=== PATIENT | female | born 1960 | race Caucasian/White ===

== ENCOUNTER → 2016-10-26 | Outpatient (CLI) | payer OTHER ==
[~2016-10-26] MED LIST: ASPI325T45 PO; ASPI81TA28 PO; CYAN10005 PO; CYCL10TA6 PO; DOXY100C2 PO; FERR1TAB61 PO; LPT/40 PO; MULT-506 PO; NITR1CAP16 PO; OMEGCAP2 PO; OMEP40CA41 PO; OPTIRAY 320 IV PRN; OXYC-57 PO; PRED10TA PO; PRT/20 PO; RANI300T PO; SENN-65 PO; SERT-234 PO; [UNRECOGNIZED DRUG - CODE] PO
[2016-10-26 09:37] LABS: BLOOD UREA NITROGEN 11 mg/dl (7-18); CALCIUM 9.1 mg/dl (8.5-10.1); CARBON DIOXIDE 27 mmol/L (21-32); CHLORIDE 105 mmol/L (98-107); GLUCOSE 101 mg/dl (70-99); SODIUM 141 mmol/L (136-145)
--- NOTE | 2016-10-26 09:59 | DIAGNOSTIC IMAGING REPORT ---
CT SCAN OF THE CHEST WITH IV CONTRAST CLINICAL HISTORY: Cough. Hemoptysis. COMPARISON STUDY: Chest radiograph dated 08/05/2015. Abdominal CT dated 01/18/2015. TECHNIQUE: Following the IV administration of 94 cc of Optiray 320, CT scan of the thorax was performed from the thoracic inlet to the upper abdomen. Images are reviewed in the axial, sagittal, and coronal planes. IV contrast was administered without complication. CT DOSE: 248.90 mGy.cm FINDINGS: Thyroid: Imaged portions of the thyroid gland are normal in size and attenuation. Thoracic aorta: The thoracic aorta is normal in caliber and demonstrates standard 3-vessel arch anatomy. No dissection is seen. Pulmonary vasculature: The pulmonary trunk is normal in caliber. There are no filling defects identified in the central pulmonary vessels to indicate pulmonary embolus. Note that this examination was not protocoled for evaluation of the pulmonary arteries. Heart: The heart is normal in size and there is trace pericardial fluid. Lungs and pleural spaces: There is biapical scarring. No airspace consolidation or pleural effusion is identified. Linear atelectasis versus scarring is noted in the lingula. The trachea and central airways are clear. Mediastinum: There is no mediastinal lymphadenopathy. Barbara: Clear. Axillae: There is no axillary lymphadenopathy. Upper abdomen: Cholecystectomy clips are identified in the right upper quadrant. There is evidence of hepatic steatosis. A small hiatal hernia is identified. Foci of cortical scarring are noted in the upper pole of the right kidney. There is a punctate nonobstructing renal calculus in the right upper pole. Skeletal structures: The skeletal structures are osteopenic. No lytic or blastic bony lesions are seen. IMPRESSION: 1. There is no airspace consolidation or pleural effusion. 2. There is no mediastinal or hilar lymphadenopathy. 3. Cortical scarring and a nonobstructing stone identified in the upper pole of the right kidney. This is similar appearance to the 01/18/[address] 4. Hepatic steatosis. 5. Additional findings as above. Electronically signed by: Miguel Angel Davis M.D. 10/26/2016 9:58 AM Dictated Date/Time: 10/26/2016 9:53 AM
== END | disposition home or self-care (01) ==
LOC: C.CTS 08:42
PROVIDERS: ATTEND Internal Medicine Pulmonary Disease
DX: R04.2 Hemoptysis (principal); K76.0 Fatty (change of) liver, not elsewhere classified; N20.0 Calculus of kidney

== ENCOUNTER → 2016-11-16 | Outpatient (CLI) | payer OTHER ==
[~2016-11-16] MED LIST changes: -OPTIRAY 320 IV PRN
[2016-11-16 20:21] LABS: INFLUENZA B PCR Neg for Influ B (NEG)
[2016-11-16 20:22] LABS: INFLUENZA A PCR POS for Influ A (NEG)
== END | disposition home or self-care (01) ==
LOC: C.LABMFLN 12:18
PROVIDERS: ATTEND Family Medicine
DX: J06.9 Acute upper respiratory infection, unspecified (principal)

== ENCOUNTER 2017-01-22 15:46 | Emergency (ER) | payer OTHER ==
[~2017-01-22] VITALS: Ht 167.6 cm; Wt 83.9 kg
[~2017-01-22 15:46] MED LIST changes: -ASPI81TA28 PO; -CYAN10005 PO; -DOXY100C2 PO; -MULT-506 PO; -NITR1CAP16 PO; -OMEP40CA41 PO; -OXYC-57 PO; -PRED10TA PO; -[UNRECOGNIZED DRUG - CODE] PO
[2017-01-22 15:57] VITALS: TEMP 36.8; Ht 167.6 cm; Wt 83.9 kg
[2017-01-22] MEDS ORDERED: KETOROLAC TROMETHAMINE 30 MG/ML VIAL IV STA (16:36)
[2017-01-22 16:45] LABS: BASO % 0.3 %; BASO ABS # 0.02 K/uL (0-0.2); COMPLETE YES; HEMATOCRIT 37.5 % (37-47); IG% 0.3 %; LYMPH ABS # 1.87 K/uL (1.2-3.4); MEAN CELL VOLUME 87.8 fL (80-100); MEAN CORPUSCULAR HEMOGLOBIN 29.7 pg (25-34); MEAN CORPUSCULAR HGB CONC 33.9 g/dl (32-36); MEAN PLATELET VOLUME 9.5 fL (7.4-10.4); MONO % 7.1 %; NEUT % 61.3 %; PLATELET COUNT 157 K/uL (130-400); RED BLOOD COUNT 4.27 M/uL (4.2-5.4); WHITE BLOOD COUNT 6.44 K/uL (4.8-10.8)
[2017-01-22 16:55] LABS: URINE APPEARANCE CLEAR (CLEAR); URINE BILIRUBIN NEG (NEG); URINE COLOR YELLOW; URINE EPITHELIAL CELL AUTO >30 /lpf (0-5); URINE NITRITE NEG (NEG); URINE PH 5.5 (4.5-7.5); UROBILINOGEN NEG (NEG); ZZUR CULT IF INDIC CLEAN CATCH YES
[2017-01-22 16:56] LABS: MANUAL MICROSCOPIC REQUIRED? NO; REVIEW REQ? NO
[2017-01-22 17:04] LABS: ALT/SGPT 41 U/L (12-78); AST/SGOT 28 U/L (15-37); BLOOD UREA NITROGEN 16 mg/dl (7-18); BUN/CREATININE RATIO 13.6 (10-20); CALCIUM 9.2 mg/dl (8.5-10.1); CARBON DIOXIDE 28 mmol/L (21-32); CHLORIDE 105 mmol/L (98-107); GLUCOSE 93 mg/dl (70-99); POTASSIUM 3.9 mmol/L (3.5-5.1); SODIUM 141 mmol/L (136-145)
[2017-01-22 17:08] LABS: ALKALINE PHOSPHATASE 102 U/L (45-117)
--- NOTE | 2017-01-22 17:10 | EMERGENCY ROOM VISIT NOTE ---
History Report prepared by Davide: Arun Melvin Under the Supervision of: Dr. Lacho Elliott M.D. 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 The discomfort significantly worsened over the weekend. 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 The patient had the tumor removed and has not had discomfort in the area since. She notes that the pain she is currently having is right around the area of where the operation was and her symptoms feel similar. She also complains of a feeling more fatigued. The discomfort is worse with deep breaths and lifting her left arm. She also complains of cough, some shortness of breath that comes and goes, and chills. She denies fever or recent falls or trauma at this time. Source of History: patient Onset: the past 5 days Position: other (left lung ) Timing: other (persistent) Modifying Factors (Worsening): breathing (deep breaths ), other (lifting left arm) Associated Symptoms: + SOB (some coming and going), + chills, + cough, + fatigue, No fevers Note: Denies: recent falls or trauma Review of Systems All systems have been listed, reviewed, and are negative other than those previously mentioned. Please see Additional Medical History Sheet. Past Medical & Surgical Medical Problems: (1) Fibromyalgia (2) HLD (hyperlipidemia) (3) Mini stroke (4) Neuropathy Family History Heart disease Social History Smoking Status: Former Smoker Alcohol Use: none Housing Status: lives with family Occupation Status: employed Current/Historical Medications Scheduled Aspirin (Aspirin), 325 MG PO DAILY Atorvastatin (Lipitor), 40 MG PO DAILY Cyanocobalamin (Vitamin B-12), 1,000 MCG PO DAILY Cyclobenzaprine Hcl (Flexeril), 10 MG PO HS Ferrous Sulfate (Iron), 65 MG PO DAILY Nitrofurantoin Monohyd Macro (Macrobid), 100 MG PO BID [place]-3 Fatty Acids (Fish Oil), 1,290 MG PO DAILY Pantoprazole (Protonix), 20 MG PO DAILY Ranitidine Hcl (Zantac), 300 MG PO HS Sertraline (Zoloft), 200 MG PO HS Scheduled PRN Oxycodone/Acetaminophen 5MG/325MG (Percocet 5MG/325MG), 1-2 TABLETS PO Q4H PRN for Pain Senna/Docusate Sod (Senokot S), 1 TAB PO DAILY PRN for Constipation Allergies Coded Allergies: Ciprofloxacin (Unverified Allergy, Unknown, ITCHY,, 01/22/17) Gabapentin (Verified Allergy, Unknown, Disorientation/Itching, 01/22/17) Source, reported by PT. Tramadol (Verified Allergy, Unknown, ITCHY, 01/22/17) Penicillins (Verified Adverse Reaction, Unknown, DISORIENTED, 01/22/17) Sulfa Drugs (Verified Adverse Reaction, Unknown, DISORIENTED, 01/22/17) Physical Exam Vital Signs Date Time Temp Pulse Resp B/P Pulse Ox O2 Delivery O2 Flow Rate FiO2 01/22/17 18:08 88 18 98/68 97 01/22/17 17:46 84 16 95 01/22/17 17:16 84 17 94 01/22/17 16:46 84 12 95 01/22/17 16:28 Room Air 01/22/17 16:28 97 16 117/93 97 Room Air 01/22/17 16:20 92 01/22/17 15:57 36.8 84 18 139/85 98 Room Air Physical Exam GENERAL: Patient awake, alert, oriented x 3. Patient follows commands. Patient does not appear toxic. Patient is adequately hydrated and well- nourished. SKIN: No erythema, pallor, cyanosis or rash HEENT: Normal head, pupils equal, reactive to light and accommodation. Ears normal. Oral cavity and posterior pharynx appear normal. Neck: Without adenopathy, no neck vein distention. LUNGS: Clear to auscultation. No wheezes, no rales, no rhonchi. HEART: No murmurs. No gallops. No rubs ABDOMEN: No masses, no rebound, no hepatomegaly or splenomegaly. Two small scars on upper abdomen from a previous laparoscopic surgery. BACK: Tender on left sign from T6 to T8. EXTREMITIES: No signs of trauma. No pedal or pretibial edema. No calf or thigh tenderness. NEUROLOGIC: Cranial nerves II-XII within normal limits. No gross motor sensory function deficits. Medical Decision & Procedures ER Provider Diagnostic Interpretation: X ray results are stated below per my interpretation and the radiologist's interpretation. TWO VIEW CHEST CLINICAL HISTORY: Left-sided chest pain. FINDINGS: PA and lateral chest radiographs are compared to study dated 08/05/2015 and correlated with chest CT dated 10/26/16. The cardiomediastinal silhouette is unremarkable. There is atherosclerotic calcification of the thoracic aorta. The pulmonary vasculature is noncongested. Emphysema and chronic interstitial thickening are unchanged. No airspace consolidation or pleural effusion is identified. There is biapical scarring. There is no pneumothorax. The skeletal structures are osteopenic. The bony thorax appears intact. Cholecystectomy clips are identified in the right upper quadrant. IMPRESSION: No acute cardiopulmonary abnormality. Electronically signed by: Miguel Angel Davis M.D. 01/22/2017 5:20 PM Dictated Date/Time: 01/22/2017 5:18 PM Laboratory Results 01/22/17 16:35 Red Blood Count 4.27, Mean Corpuscular Volume 87.8, Mean Corpuscular Hemoglobin 29.7, Mean Corpuscular Hemoglobin Concent 33.9, Mean Platelet Volume 9.5, Neutrophils (%) (Auto) 61.3, Lymphocytes (%) (Auto) 29.0, Monocytes (%) (Auto) 7.1, Eosinophils (%) (Auto) 2.0, Basophils (%) (Auto) 0.3, Neutrophils # (Auto) 3.94, Lymphocytes # (Auto) 1.87, Monocytes # (Auto) 0.46, Eosinophils # (Auto) 0.13, Basophils # (Auto) 0.02 01/22/17 16:35 Test 01/22/17 00:00 01/22/17 16:35 Urine Color YELLOW Urine Appearance CLEAR (CLEAR) Urine pH 5.5 (4.5-7.5) Urine Specific [place] 1.010 (1.000-1.030) Urine Protein NEG (NEG) Urine Glucose (UA) NEG (NEG) Urine Ketones NEG (NEG) Urine Occult Blood NEG (NEG) Urine Nitrite NEG (NEG) Urine Bilirubin NEG (NEG) Urine Urobilinogen NEG (NEG) Urine Leukocyte Esterase MODERATE (NEG) Urine WBC (Auto) 10-30 /hpf (0-5) Urine RBC (Auto) 0-4 /hpf (0-4) Urine Hyaline Casts (Auto) 1-5 /lpf (0-5) Urine Epithelial Cells (Auto) >30 /lpf (0-5) Urine Bacteria (Auto) 3+ (NEG) White Blood Count 6.44 K/uL (4.8-10.8) Red Blood Count 4.27 M/uL (4.2-5.4) Hemoglobin 12.7 g/dL (12.0-16.0) Hematocrit 37.5 % (37-47) Mean Corpuscular Volume 87.8 fL (80-100) Mean Corpuscular Hemoglobin 29.7 pg (25-34) Mean Corpuscular Hemoglobin Concent 33.9 g/dl (32-36) Platelet Count 157 K/uL (130-400) Mean Platelet Volume 9.5 fL (7.4-10.4) Neutrophils (%) (Auto) 61.3 % Lymphocytes (%) (Auto) 29.0 % Monocytes (%) (Auto) 7.1 % Eosinophils (%) (Auto) 2.0 % Basophils (%) (Auto) 0.3 % Neutrophils # (Auto) 3.94 K/uL (1.4-6.5) Lymphocytes # (Auto) 1.87 K/uL (1.2-3.4) Monocytes # (Auto) 0.46 K/uL (0.11-0.59) Eosinophils # (Auto) 0.13 K/uL (0-0.5) Basophils # (Auto) 0.02 K/uL (0-0.2) RDW Standard Deviation 43.3 fL (36.4-46.3) RDW Coefficient of Variation 13.4 % (11.5-14.5) Immature Granulocyte % (Auto) 0.3 % Immature Granulocyte # (Auto) 0.02 K/uL (0.00-0.02) Anion Gap 8.0 mmol/L (3-11) Est Creatinine Clear Calc Drug Dose 57.1 ml/min Estimated GFR () 58.5 Estimated GFR (Non- 50.5 BUN/Creatinine Ratio 13.6 (10-20) Calcium Level 9.2 mg/dl (8.5-10.1) Total Bilirubin 0.4 mg/dl (0.2-1) Aspartate Amino Transf (AST/SGOT) 28 U/L (15-37) Alanine Aminotransferase (ALT/SGPT) 41 U/L (12-78) Alkaline Phosphatase 102 U/L (45-117) Troponin I < 0.015 ng/ml (0-0.045) Total Protein 8.1 gm/dl (6.4-8.2) Albumin 4.0 gm/dl (3.4-5.0) Globulin 4.1 gm/dl (2.5-4.0) Albumin/Globulin Ratio 1.0 (0.9-2) Laboratory results as stated above per my review. Medications Administered Medications (Trade) Dose Ordered Sig/Antonio Route Start Time Stop Time Status Last Admin Dose Admin Ketorolac Tromethamine (Toradol Inj) 30 mg NOW STAT IV 01/22/17 16:36 01/22/17 16:39 DC 01/22/17 16:50 30 MG ECG Indication: back/shoulder pain Rate (beats per minute): 90 Rhythm: normal sinus Findings: no acute ischemic change, no ectopy ED Course 1629: Past medical records reviewed. The patient was evaluated in room B7. A complete history and physical examination was performed. 1636: Ordered Toradol Inj 30 mg IV. 1722: At this time, I reevaluated the patient and she was resting. She updated me stating that she had a history of recurrent kidney infections. 1742: Upon reevaluation, the patient appeared to have improvement of her symptoms. I discussed today's findings with her. She verbalized agreement of the treatment plan. The patient was discharged home. Medical Decision Differential diagnoses include musculoskeletal pain, pneumonia, thoracic spine fracture or arthritis, or neoplastic disease. Multiple labs, EKG, imaging and urinalysis were evaluated.please see above. Chest x-ray does not reveal any acute findings. The patient does not have a pneumothorax or mass. Blood work is unremarkable. Urinalysis is consistent with a UTI. The patient has had past kidney infections. She will be placed back on Macrobid which has worked for her in the past. The patient was also given pain medication. She is to follow-up with her metabolic specialist or family physician within the next 2 weeks. [place] Drug Monitoring Program Search Results: patient reviewed within database, no issues identified Impression Primary Impression: Musculoskeletal back pain Additional Impression: Urinary tract infection Scribe Attestation The scribe's documentation has been prepared under my direction and personally reviewed by me in its entirety. I confirm that the note above accurately reflects all work, treatment, procedures, and medical decision making performed by me. Departure Information Dispostion Home / Self-Care Prescriptions Nitrofurantoin Monohyd Macro (MACROBID) 100 Mg Cap 100 MG PO BID for 10 Days, #20 CAP Prov: Lacho Elliott M.D. 01/22/17 Oxycodone/Acetaminophen 5MG/325MG (PERCOCET 5MG/325MG) Tab 1-2 TABLETS PO Q4H Y for Pain, #20 TAB Prov: Lacho Elliott M.D. 01/22/17 Referrals Isabelle Arredondo M.D. (PCP) Forms IMPORTANT VISIT INFORMATION Patient Instructions My [facility] Additional Instructions Apply heat intermittently to your back and left chest over the next 48 hours. 1 Macrobid twice a day for 10 days. 1-2 Percocet every 4 hours as needed for moderate to severe pain. Follow-up with your family physician or metabolic specialist within the next 2 weeks. Return here sooner if your pain is getting worse. Problem Qualifiers
--- NOTE | 2017-01-22 17:21 | DIAGNOSTIC IMAGING REPORT ---
TWO VIEW CHEST CLINICAL HISTORY: Left-sided chest pain. FINDINGS: PA and lateral chest radiographs are compared to study dated 08/05/2015 and correlated with chest CT dated 10/26/16. The cardiomediastinal silhouette is unremarkable. There is atherosclerotic calcification of the thoracic aorta. The pulmonary vasculature is noncongested. Emphysema and chronic interstitial thickening are unchanged. No airspace consolidation or pleural effusion is identified. There is biapical scarring. There is no pneumothorax. The skeletal structures are osteopenic. The bony thorax appears intact. Cholecystectomy clips are identified in the right upper quadrant. IMPRESSION: No acute cardiopulmonary abnormality. Electronically signed by: Miguel Angel Davis M.D. 01/22/2017 5:20 PM Dictated Date/Time: 01/22/2017 5:18 PM
[2017-01-22] MEDS ORDERED: CYAN10005 PO (17:49)
[2017-01-22] MEDS ORDERED: NITR1CAP16 PO (18:01)
[2017-01-22] MEDS ORDERED: OXYC-57 PO (18:01)
[2017-01-22 18:08] VITALS: BP 98/68; PULSE 88; O2SAT 97
== END 2017-01-22 18:19 | disposition home or self-care (01) ==
LOC: C.EDB 15:48
DX: M54.9 Dorsalgia, unspecified (principal); N39.0 Urinary tract infection, site not specified; M79.7 Fibromyalgia; E78.5 Hyperlipidemia, unspecified; Z86.73 Personal history of transient ischemic attack (TIA), and cerebral infarction without residual deficits; G62.9 Polyneuropathy, unspecified; Z87.891 Personal history of nicotine dependence; Z79.82 Long term (current) use of aspirin; Z79.899 Other long term (current) drug therapy

== ENCOUNTER 2017-03-19 12:46 | Emergency (ER) | payer OTHER ==
[~2017-03-19] VITALS: Ht 167.6 cm; Wt 83.8 kg
[~2017-03-19 12:46] MED LIST changes: +CYAN10005 PO; +OXYC-57 PO
[2017-03-19 12:51] VITALS: TEMP 37; Ht 167.6 cm; Wt 83.8 kg
[2017-03-19] MEDS ORDERED: SODIUM CHLORIDE 0.9% 1000ML 1,000 ML IV STA (13:05)
[2017-03-19] MEDS ORDERED: MoRPHine SULFATE 4 MG/ML 1 ML CARP\\VIAL IV STA (13:05)
[2017-03-19] MEDS ORDERED: ONDANSETRON INJ 2 MG/ML 2 ML VIAL IV STA (13:06)
[2017-03-19 13:32] LABS: BASO % 0.3 %; BASO ABS # 0.02 K/uL (0-0.2); COMPLETE YES; EOS % 2.1 %; HEMATOCRIT 36.7 % (37-47); IG% 0.3 %; LYMPH % 27.3 %; MEAN CELL VOLUME 86.8 fL (80-100); MEAN CORPUSCULAR HEMOGLOBIN 29.3 pg (25-34); MEAN CORPUSCULAR HGB CONC 33.8 g/dl (32-36); MEAN PLATELET VOLUME 9.7 fL (7.4-10.4); MONO % 8.2 %; NEUT % 61.8 %; PLATELET COUNT 153 K/uL (130-400); RED BLOOD COUNT 4.23 M/uL (4.2-5.4)
[2017-03-19 13:51] LABS: BUN/CREATININE RATIO 8.9 (10-20); CREATININE 1.3 mg/dl (0.60-1.20); POTASSIUM 3.8 mmol/L (3.5-5.1)
--- NOTE | 2017-03-19 14:29 | DIAGNOSTIC IMAGING REPORT ---
ABDOMEN AND PELVIS CT WITHOUT CONTRAST CT DOSE: 446.06 mGy.cm HISTORY: Pain. Nausea. periumbilical abd pain, bloating, nausea TECHNIQUE: Multiaxial CT images of the abdomen and pelvis were performed without contrast. COMPARISON STUDY: 01/18/2015 FINDINGS: Lung bases are clear. Liver spleen and pancreas appear unremarkable. Prior cholecystectomy. Several punctate nonobstructing calcifications of the right kidney. Mild fullness right renal collecting system unchanged from the prior exam and considered chronic. The adrenal glands are unremarkable. Bowel pattern is nonobstructive. Several small reactive mesenteric nodes unchanged in the prior study. Stable postoperative changes to low lumbar spine. Bladder is midline. There are no contained calcifications. There is no significant pelvic or inguinal adenopathy. IMPRESSION: No acute process of the abdomen or pelvis. Chronic change as noted. Electronically signed by: Rony Casarez M.D. 03/19/2017 2:27 PM Dictated Date/Time: 03/19/2017 2:22 PM
[2017-03-19] MEDS ORDERED: ASPI81TA28 PO (14:50)
[2017-03-19] MEDS ORDERED: MULT-506 PO (14:56)
[2017-03-19] MEDS ORDERED: DOXY100C2 PO (14:57)
[2017-03-19] MEDS ORDERED: PRED10TA PO (15:08)
[2017-03-19] MEDS ORDERED: [UNRECOGNIZED DRUG - CODE] PO (15:09)
[2017-03-19 15:58] LABS: URINE APPEARANCE CLEAR (CLEAR); URINE BILIRUBIN NEG (NEG); URINE COLOR YELLOW; URINE EPITHELIAL CELL AUTO >30 /lpf (0-5); URINE NITRITE NEG (NEG); URINE PH 5.5 (4.5-7.5); URINE SPECIFIC GRAVITY 1.012 (1.000-1.030); UROBILINOGEN NEG (NEG); ZZUR CULT IF INDIC CLEAN CATCH NO
[2017-03-19 15:59] LABS: MANUAL MICROSCOPIC REQUIRED? NO; REVIEW REQ? NO
[2017-03-19] MEDS ORDERED: OMEP40CA41 PO (16:04)
--- NOTE | 2017-03-19 16:04 | EMERGENCY ROOM VISIT NOTE ---
History First contact with patient: 12:54 Chief Complaint: ABDOMINAL PAIN Stated Complaint: ARM PAIN, STOMACH PAIN, BURNING Nursing Triage Summary: Pt presents with diffuse abd pain that began during the night. "I feel a lump on the top of my belly button. What really scared me was that I drank tea and it burned from the time it hit my throat the whole way down." Nausea, diarrhea. Pt seen at [facility]. last week and was asked if she is "being treated for her liver because it is fatty and they think there are some spots." History of Present Illness The patient is a 56 year old female who presents to the Emergency Room with complaints of burning abdominal pain. The patient states that she woke up in the middle of the night with burning pain in her abdomen. She states that the pain is located in the middle of the abdomen. She describes the pain as a burning, sore sensation and rates the discomfort a 10/10. She states that she drank some tea at work and felt a burning all the way down through her abdomen. She states that she has noticed a lump in her epigastric region for "a while. " She states that her abdomen has been swollen for several months. She reports nausea, but no vomiting. She denies any changes in bowel movements. She has not taken any medication for pain. She reports a history of hysterectomy, appendectomy and cholecystectomy. Review of Systems A complete 10 point review of systems was reviewed with the patient with pertinent positives and negatives as per history of present illness. All else were negative. Past Medical/Surgical History Medical Problems: (1) Fibromyalgia (2) HLD (hyperlipidemia) (3) Mini stroke (4) Neuropathy Family History Heart disease Social History Smoking Status: Former Smoker Alcohol Use: none Housing Status: lives with family Occupation Status: employed Current/Historical Medications Scheduled Aspirin (Aspirin Ec), 81 MG PO DAILY Atorvastatin (Lipitor), 40 MG PO DAILY Cyclobenzaprine Hcl (Flexeril), 10 MG PO HS Doxycycline Hyclate (Vibramycin), 100 MG PO BID Multivitamin (Multivitamin), 1 TAB PO DAILY Omeprazole (Prilosec), 40 MG PO DAILY Pantoprazole (Protonix), 20 MG PO DAILY Prednisone Tab (Prednisone), 10 MG PO UD Ranitidine Hcl (Zantac), 300 MG PO BID Sertraline (Zoloft), 200 MG PO HS Scheduled PRN Oxycodone/Acetaminophen 5MG/325MG (Percocet 5MG/325MG), 1-2 TABLETS PO Q4H PRN for Pain Peg 8919-Gin-Lybf-Na Sulfate-N (Moviprep), 30 ML PO UD PRN for Constipation Allergies Coded Allergies: Ciprofloxacin (Unverified Allergy, Unknown, ITCHY,, 03/19/17) Gabapentin (Verified Allergy, Unknown, Disorientation/Itching, 03/19/17) Source, reported by PT. Tramadol (Verified Allergy, Unknown, ITCHY, 01/22/17) Penicillins (Verified Adverse Reaction, Unknown, DISORIENTED, 03/19/17) Sulfa Drugs (Verified Adverse Reaction, Unknown, DISORIENTED, 03/19/17) Physical Exam Vital Signs Date Time Temp Pulse Resp B/P (MAP) Pulse Ox O2 Delivery O2 Flow Rate FiO2 03/19/17 16:14 71 18 130/56 99 03/19/17 15:25 95 18 136/82 96 Room Air 03/19/17 14:49 88 20 127/69 100 Room Air 03/19/17 12:51 37.0 94 18 132/76 97 Room Air Physical Exam VITALS: Vitals are noted on the nurse's note and reviewed by myself. Vital signs stable. GENERAL: This is a 56-year-old female, in no acute distress, nondiaphoretic, well-developed well-nourished. SKIN: Capillary reflex less than 2 seconds. HEENT: Normocephalic. PERRLA. EOMI. Nares patent. Mucous membranes moist. Neck is supple without nuchal rigidity. HEART: Regular rate and rhythm without murmurs gallops or rubs. LUNGS: Clear to auscultation bilaterally without wheezes, rales or rhonchi. ABDOMEN: Positive bowel sounds x 4. Soft, mild tenderness to palpation of the epigastric and periumbilical region. No palpable masses or organomegaly. NEURO: Patient was alert and oriented to person place and time. Medical Decision & Procedures ER Provider Diagnostic Interpretation: ABDOMEN AND PELVIS CT WITHOUT CONTRAST FINDINGS: Lung bases are clear. Liver spleen and pancreas appear unremarkable. Prior cholecystectomy. Several punctate nonobstructing calcifications of the right kidney. Mild fullness right renal collecting system unchanged from the prior exam and considered chronic. The adrenal glands are unremarkable. Bowel pattern is nonobstructive. Several small reactive mesenteric nodes unchanged in the prior study. Stable postoperative changes to low lumbar spine. Bladder is midline. There are no contained calcifications. There is no significant pelvic or inguinal adenopathy. IMPRESSION: No acute process of the abdomen or pelvis. Chronic change as noted. Laboratory Results 03/19/17 13:20 Red Blood Count 4.23, Mean Corpuscular Volume 86.8, Mean Corpuscular Hemoglobin 29.3, Mean Corpuscular Hemoglobin Concent 33.8, Mean Platelet Volume 9.7, Neutrophils (%) (Auto) 61.8, Lymphocytes (%) (Auto) 27.3, Monocytes (%) (Auto) 8.2, Eosinophils (%) (Auto) 2.1, Basophils (%) (Auto) 0.3, Neutrophils # (Auto) 4.08, Lymphocytes # (Auto) 1.80, Monocytes # (Auto) 0.54, Eosinophils # (Auto) 0.14, Basophils # (Auto) 0.02 03/19/17 13:20 Test 03/19/17 13:20 03/19/17 15:05 White Blood Count 6.60 K/uL (4.8-10.8) Red Blood Count 4.23 M/uL (4.2-5.4) Hemoglobin 12.4 g/dL (12.0-16.0) Hematocrit 36.7 % (37-47) Mean Corpuscular Volume 86.8 fL (80-100) Mean Corpuscular Hemoglobin 29.3 pg (25-34) Mean Corpuscular Hemoglobin Concent 33.8 g/dl (32-36) Platelet Count 153 K/uL (130-400) Mean Platelet Volume 9.7 fL (7.4-10.4) Neutrophils (%) (Auto) 61.8 % Lymphocytes (%) (Auto) 27.3 % Monocytes (%) (Auto) 8.2 % Eosinophils (%) (Auto) 2.1 % Basophils (%) (Auto) 0.3 % Neutrophils # (Auto) 4.08 K/uL (1.4-6.5) Lymphocytes # (Auto) 1.80 K/uL (1.2-3.4) Monocytes # (Auto) 0.54 K/uL (0.11-0.59) Eosinophils # (Auto) 0.14 K/uL (0-0.5) Basophils # (Auto) 0.02 K/uL (0-0.2) RDW Standard Deviation 42.3 fL (36.4-46.3) RDW Coefficient of Variation 13.3 % (11.5-14.5) Immature Granulocyte % (Auto) 0.3 % Immature Granulocyte # (Auto) 0.02 K/uL (0.00-0.02) Anion Gap 9.0 mmol/L (3-11) Est Creatinine Clear Calc Drug Dose 52.7 ml/min Estimated GFR () 53.1 Estimated GFR (Non- 45.8 BUN/Creatinine Ratio 8.9 (10-20) Calcium Level 9.0 mg/dl (8.5-10.1) Total Bilirubin 0.3 mg/dl (0.2-1) Aspartate Amino Transf (AST/SGOT) 25 U/L (15-37) Alanine Aminotransferase (ALT/SGPT) 35 U/L (12-78) Alkaline Phosphatase 102 U/L (45-117) Total Protein 7.9 gm/dl (6.4-8.2) Albumin 3.9 gm/dl (3.4-5.0) Globulin 4.0 gm/dl (2.5-4.0) Albumin/Globulin Ratio 1.0 (0.9-2) Lipase 241 U/L (73-393) Urine Color YELLOW Urine Appearance CLEAR (CLEAR) Urine pH 5.5 (4.5-7.5) Urine Specific [place] 1.012 (1.000-1.030) Urine Protein NEG (NEG) Urine Glucose (UA) NEG (NEG) Urine Ketones NEG (NEG) Urine Occult Blood NEG (NEG) Urine Nitrite NEG (NEG) Urine Bilirubin NEG (NEG) Urine Urobilinogen NEG (NEG) Urine Leukocyte Esterase TRACE (NEG) Urine WBC (Auto) 1-5 /hpf (0-5) Urine RBC (Auto) 0-4 /hpf (0-4) Urine Hyaline Casts (Auto) 0 /lpf (0-5) Urine Epithelial Cells (Auto) >30 /lpf (0-5) Urine Bacteria (Auto) NEG (NEG) Medications Administered Medications (Trade) Dose Ordered Sig/Antonio Route Start Time Stop Time Status Last Admin Dose Admin Sodium Chloride 1,000 ml @ 999 mls/hr Q1H1M STAT IV 03/19/17 13:05 03/19/17 14:05 DC 03/19/17 13:18 999 MLS/HR Morphine Sulfate (MoRPHine SULFATE INJ) 4 mg NOW STAT IV 03/19/17 13:05 03/19/17 13:06 DC 03/19/17 13:18 4 MG Ondansetron HCl (Zofran Inj) 4 mg NOW STAT IV 03/19/17 13:06 03/19/17 13:07 DC 03/19/17 13:18 4 MG ED Course The patient was evaluated as above. Labs were drawn and IV access was obtained. Patient was medicated with 1 L normal saline solution, 4 mg of morphine and [address] of the abdomen and pelvis was performed and read by radiology as above. Patient was reevaluated and felt much better. Findings were discussed. Discharge instructions were reviewed with the patient. The patient verbalized understanding of my assessment and treatment plan and was discharged home in good condition. Medical Decision Differential diagnosis includes gastritis, GERD, cholecystitis, pancreatitis, colitis, bowel obstruction, malignancy, diverticulitis, among others. The patient is a 56-year-old female who presents today complaining of burning abdominal pain. Labs revealed no leukocytosis, anemia or concerning electrolyte abnormalities. Urinalysis was not suggestive of infection. CT scan of the abdomen and pelvis was performed without contrast due to the patient 's reported history of kidney disease. This showed no acute findings within the abdomen or pelvis. The patient was informed of the findings. Symptoms are most consistent with GERD or gastritis. She was instructed to start Prilosec and use Maalox or Mylanta for symptomatic relief. She will follow-up with her primary care provider and will return here if her condition worsens. The patient's case was reviewed with Dr. Villaseñor, ED attending physician, who agreed with my assessment and treatment plan. Based on the patient's presentation and work up, I feel the patient is stable for outpatient treatment. The patient was educated to return to the emergency department for any worsening of their current condition or new/concerning symptoms. She will follow up with her PCP. Medication reconciliation: I attest that I have personally reviewed the patient 's current medication list. Blood Pressure Screening: Patient was found to have a slightly elevated blood pressure due to circumstances. I do not believe that the patient requires hypertension monitoring. Impression Primary Impression: Epigastric abdominal pain Departure Information Dispostion Home / Self-Care Condition GOOD Prescriptions Omeprazole (PRILOSEC) 40 Mg Cap 40 MG PO DAILY for 14 Days, #14 CAP Prov: Marleny Zaman ., SONAL 03/19/17 Referrals Isabelle Arredondo M.D. (PCP) Patient Instructions My [facility] Additional Instructions You have been treated in the Emergency Department your Abdominal Pain. Laboratory results and imaging studies have ruled out any emergent causes for your abdominal pain which would warrant admission or surgery. Begin taking Prilosec as prescribed. You may take [id number]-[id number] Maalox or Mylanta for symptomatic relief. For pain control, you can use the following [id number] medicines (if >12 yo): - Regular strength (325mg/tab) Tylenol (acetaminophen) 2 tabs every 4-6 hours as needed. Do not exceed 12 tablets in a 24 hour period. Avoid taking more than 4 grams (4000 mg) of Tylenol per day. This includes any other sources of acetaminophen you may take on a regular basis. - Regular strength (200 mg/tab) Advil (ibuprofen) 1-2 tabs every 4-6 hours as needed. Do not exceed a dose of 3200 mg per day. Drink plenty of water and stay well hydrated. As with any trip to the Emergency Department, you should follow-up with your Primary Care Provider from today's visit. Return to the emergency department if your symptoms persist despite treatment plan outlined above or if the following symptoms occur: increased fevers, chills , worsening nausea/vomiting, blood in your stool or urine.
[2017-03-19 16:14] VITALS: BP 130/56; PULSE 71; O2SAT 99
== END 2017-03-19 16:16 | disposition home or self-care (01) ==
LOC: C.EDB 12:49 → C.EDC 16:16
DX: R10.13 Epigastric pain (principal); E78.5 Hyperlipidemia, unspecified; M79.7 Fibromyalgia; Z86.73 Personal history of transient ischemic attack (TIA), and cerebral infarction without residual deficits; Z90.710 Acquired absence of both cervix and uterus; Z90.49 Acquired absence of other specified parts of digestive tract; Z90.89 Acquired absence of other organs; Z79.82 Long term (current) use of aspirin; Z79.899 Other long term (current) drug therapy

== ENCOUNTER → 2017-03-23 | Outpatient (CLI) | payer OTHER ==
[~2017-03-23] MED LIST changes: -ASPI325T45 PO; +ASPI81TA28 PO; -CYAN10005 PO; +DOXY100C2 PO; -FERR1TAB61 PO; +MULT-506 PO; -OMEGCAP2 PO; +OMEP40CA41 PO; +PRED10TA PO; -SENN-65 PO; +[UNRECOGNIZED DRUG - CODE] PO
[2017-03-23 13:14] LABS: BASO % 0.5 %; BASO ABS # 0.03 K/uL (0-0.2); COMPLETE YES; EOS % 2.3 %; HEMATOCRIT 37.7 % (37-47); IG% 0.2 %; LYMPH % 26.4 %; MEAN CELL VOLUME 87.5 fL (80-100); MEAN CORPUSCULAR HEMOGLOBIN 29.5 pg (25-34); MEAN CORPUSCULAR HGB CONC 33.7 g/dl (32-36); MEAN PLATELET VOLUME 9.5 fL (7.4-10.4); MONO % 7.6 %; PLATELET COUNT 154 K/uL (130-400); RED BLOOD COUNT 4.31 M/uL (4.2-5.4); WHITE BLOOD COUNT 6.07 K/uL (4.8-10.8)
[2017-03-23 15:07] LABS: CALCIUM 9.7 mg/dl (8.5-10.1)
[2017-03-23 15:08] LABS: ALKALINE PHOSPHATASE 90 U/L (45-117); ALT/SGPT 34 U/L (12-78); AST/SGOT 25 U/L (15-37); BLOOD UREA NITROGEN 15 mg/dl (7-18); BUN/CREATININE RATIO 11.2 (10-20); CARBON DIOXIDE 28 mmol/L (21-32); CHLORIDE 105 mmol/L (98-107); CHOLESTEROL 147 mg/dl (0-200); CHOLESTEROL/HDL RATIO 3.3; GLUCOSE 96 mg/dl (70-99); HDL CHOLESTEROL 44 mg/dl; LDL CHOLESTEROL CALCULATED 59 mg/dl; POTASSIUM 4.2 mmol/L (3.5-5.1); SODIUM 139 mmol/L (136-145); TRIGLYCERIDES 219 mg/dl (0-150); VERY LOW DENSITY LIPOPROT CALC 44 mg/dl
== END | disposition home or self-care (01) ==
LOC: C.LABMFLN 09:47
PROVIDERS: ATTEND Family Medicine
DX: K21.9 Gastro-esophageal reflux disease without esophagitis (principal); E78.2 Mixed hyperlipidemia

== ENCOUNTER → 2017-04-19 | Outpatient (CLI) | payer OTHER ==
[~2017-04-19] MED LIST changes: -OMEP40CA41 PO
[2017-04-19 14:46] LABS: URINE APPEARANCE CLEAR (CLEAR); URINE BILIRUBIN NEG (NEG); URINE COLOR DK YELLOW; URINE EPITHELIAL CELL AUTO >30 /lpf (0-5); URINE NITRITE POS (NEG); URINE SPECIFIC GRAVITY 1.021 (1.000-1.030); UROBILINOGEN NEG (NEG)
[2017-04-19 14:48] LABS: URINE PROTIEN/CREAT RATIO 0.1 (0-0.2); URINE TOTAL PROTEIN 18.3 mg/dl (0-11.9)
[2017-04-19 14:53] LABS: MANUAL MICROSCOPIC REQUIRED? NO; REVIEW REQ? NO
[2017-04-19 15:24] LABS: BLOOD UREA NITROGEN 10 mg/dl (7-18); BUN/CREATININE RATIO 8.2 (10-20); CALCIUM 9.6 mg/dl (8.5-10.1); CARBON DIOXIDE 29 mmol/L (21-32); CHLORIDE 106 mmol/L (98-107); GLUCOSE 100 mg/dl (70-99); POTASSIUM 3.9 mmol/L (3.5-5.1); SODIUM 142 mmol/L (136-145)
[2017-04-19 15:26] LABS: PHOSPHORUS 2.6 mg/dl (2.5-4.9)
== END ==
LOC: C.LABMFLN 10:20
PROVIDERS: ATTEND Internal Medicine Nephrology
DX: N18.3 Chronic kidney disease, stage 3 (moderate) (principal)

== ENCOUNTER 2017-09-21 16:02 | Emergency (ER) | payer OTHER ==
[~2017-09-21] VITALS: Ht 167.6 cm; Wt 83.9 kg
[~2017-09-21 16:02] MED LIST changes: -CYCL10TA6 PO; -OXYC-57 PO; -RANI300T PO
[2017-09-21 16:03] VITALS: TEMP 36.9; Ht 167.6 cm; Wt 83.9 kg
[2017-09-21] MEDS ORDERED: SODIUM CHLORIDE 0.9% 1000ML 1,000 ML IV STA (16:19)
[2017-09-21] MEDS ORDERED: ONDANSETRON INJ 2 MG/ML 2 ML VIAL IV STA (16:19)
[2017-09-21] MEDS ORDERED: MoRPHine SULFATE 10 MG/ML CARP/VIAL IV STA (16:19)
[2017-09-21 16:52] LABS: BASO % 0.5 %; BASO ABS # 0.03 K/uL (0-0.2); EOS % 2.6 %; EOS ABS # 0.17 K/uL (0-0.5); HEMOGLOBIN 13.3 g/dL (12.0-16.0); IG# 0.01 K/uL (0.00-0.02); LYMPH % 27.1 %; LYMPH ABS # 1.76 K/uL (1.2-3.4); MEAN CELL VOLUME 86.9 fL (80-100); MEAN CORPUSCULAR HEMOGLOBIN 29.6 pg (25-34); MEAN CORPUSCULAR HGB CONC 34.1 g/dl (32-36); MEAN PLATELET VOLUME 9.4 fL (7.4-10.4); MONO % 5.8 %; MONO ABS # 0.38 K/uL (0.11-0.59); NEUT % 63.8 %; NEUT ABS # 4.15 K/uL (1.4-6.5); PLATELET COUNT 175 K/uL (130-400); RED CELL DISTRIBUTION WIDTH CV 13.5 % (11.5-14.5); RED CELL DISTRIBUTION WIDTH SD 42.6 fL (36.4-46.3)
[2017-09-21] MEDS ORDERED: OPTIRAY 320 IV PRN (17:00)
[2017-09-21 17:11] LABS: ALBUMIN 4.1 gm/dl (3.4-5.0); ALT/SGPT 30 U/L (12-78); BLOOD UREA NITROGEN 13 mg/dl (7-18); CARBON DIOXIDE 28 mmol/L (21-32); CREATININE 1.23 mg/dl (0.60-1.20); GLUCOSE 109 mg/dl (70-99); LIPASE 177 U/L (73-393); POTASSIUM 3.7 mmol/L (3.5-5.1); SODIUM 138 mmol/L (136-145)
--- NOTE | 2017-09-21 17:12 | EMERGENCY ROOM VISIT NOTE ---
History Report prepared by [place]: Annelise Cash Under the Supervision of: Dr. Olegario Villaseñor D.O. First contact with patient: 16:07 Chief Complaint: ABDOMINAL PAIN Stated Complaint: PAIN IN THE STOMACH MID SECTION History of Present Illness The patient is a 56 year old female who presents to the Emergency Room with complaints of abdominal pain for three months BACK TUFTER. She notes that her abdomen is more distended than usual. She notes cramping pain. She currently rates the pain a 10/10 in severity. She notes nausea, bloating, and loose bowels. She thinks that she has seen a little bit of blood in her bowels but is unsure, though denies any dark tarry stools. She notes a history of tubal ligation. She notes that she was recently seen by her family PCP. She notes a family history of colon cancer. Pt denies headache, change in vision, fevers, chest pain, shortness of breath, vomiting, diarrhea, pain with urination. Source of History: patient Onset: three months BACK TUFTER Position: abdomen Symptom Intensity: 10/10 Quality: cramping Associated Symptoms: + nausea, + abdominal pain (distended ), No fevers, No headache, No chest pain, No SOB, No vomiting, No melena, No diarrhea, No urinary symptoms Note: She notes loose stools. She denies any changes in vision. She notes bloating and loose bowels. She thinks that she has seen a little bit of blood in her bowels, though denies any dark tarry stools. Review of Systems See HPI for pertinent positives & negatives. A total of 10 systems reviewed and were otherwise negative. Past Medical & Surgical Medical Problems: (1) Fibromyalgia (2) HLD (hyperlipidemia) (3) Mini stroke (4) Neuropathy Family History FH: colon cancer Heart disease Social History Smoking Status: Current Every Day Smoker Alcohol Use: none Housing Status: lives with family Occupation Status: employed Current/Historical Medications Scheduled Atorvastatin (Lipitor), 40 MG PO DAILY Cephalexin (Keflex), 1 CAP PO TID Cyclobenzaprine Hcl (Flexeril), 10 MG PO HS Ranitidine Hcl (Zantac), 300 MG PO BID Sertraline (Zoloft), 200 MG PO HS Scheduled PRN Peg 8971-Ofe-Vhlk-Na Sulfate-N (Moviprep), 30 ML PO UD PRN for Constipation Tramadol HCl (Tramadol HCl), 50-150 MG PO DAILY PRN for Pain Allergies Coded Allergies: Ciprofloxacin (Unverified Allergy, Unknown, ITCHY,, 03/19/17) Gabapentin (Verified Allergy, Unknown, Disorientation/Itching, 03/19/17) Source, reported by PT. Tramadol (Verified Allergy, Unknown, ITCHY, 01/22/17) Penicillins (Verified Adverse Reaction, Unknown, DISORIENTED, 03/19/17) Sulfa Drugs (Verified Adverse Reaction, Unknown, DISORIENTED, 03/19/17) Physical Exam Vital Signs Date Time Temp Pulse Resp B/P (MAP) Pulse Ox O2 Delivery O2 Flow Rate FiO2 09/21/17 19:30 80 18 132/70 98 Room Air 09/21/17 18:15 83 18 133/79 96 Room Air 09/21/17 16:03 36.9 87 17 148/86 97 Room Air Physical Exam GENERAL: Sitting up in bed, alert, well appearing, well nourished, in minimal distress, non-toxic. Holding abdomen EYE EXAM: normal conjunctiva. OROPHARYNX: no exudate, no erythema, lips, buccal mucosa, and tongue normal and mucous membranes are moist NECK: supple, no nuchal rigidity, no adenopathy, non-tender LUNGS: Clear to auscultation. Normal chest wall mechanics HEART: no murmurs, S1 normal and S2 normal ABDOMEN: abdomen soft, non-tender, normo-active bowel sounds, no masses, no rebound or guarding. Multiple old abdominal incisions. TTP in RLQ BACK: Back is symmetrical on inspection and there is no deformity, no midline tenderness, no CVA tenderness. SKIN: no rashes and no bruising UPPER EXTREMITIES: upper extremities are grossly normal. LOWER EXTREMITIES: No pitting edema. NEURO EXAM: Normal sensorium, cranial nerves II-XII grossly intact, normal speech, no gross weakness of arms, no gross weakness of legs. Medical Decision & Procedures ER Provider Diagnostic Interpretation: Radiology results as stated below per my review and the radiologist's interpretation: ABD/PELVIS IV CONTRAST ONLY CT DOSE: 479.72 mGy.cm HISTORY: Pain diffuse abd pain worse in rlq TECHNIQUE: Multiaxial CT images of the abdomen and pelvis were performed following the use of intravenous contrast. A dose lowering technique was utilized adhering to the principles of ALARA. COMPARISON STUDY: 03/19/2017. 2. 2 2017. FINDINGS: Lung bases are clear. Liver is uniform in appearance with pancreas and spleen are unremarkable. Prior cholecystectomy. 2 mm nonobstructing upper pole right renal calcification unchanged. Prominence of the right renal pelvis generally stable compared to prior study. Slight prominence of the left renal pelvis slightly increased from the prior exam. No evidence for an obstructing urinary tract calculus. Nonobstructive bowel pattern. Prior appendectomy. Several scattered diverticuli with no evidence diverticulitis. Focal sigmoid anastomosis on an operative basis considered unremarkable and unchanged. No free fluid within the cul-de-sac. Stable postoperative changes low lumbar spine. Focal benign bone island left mid sacrum. IMPRESSION: Chronic and postoperative change. No acute process of the abdomen or pelvis. The above report was generated using voice recognition software. It may contain grammatical, syntax or spelling errors. Electronically signed by: Rony Casarez M.D. 09/21/2017 5:42 PM Dictated Date/Time: 09/21/2017 5:35 PM Laboratory Results 09/21/17 16:40 Red Blood Count 4.49, Mean Corpuscular Volume 86.9, Mean Corpuscular Hemoglobin 29.6, Mean Corpuscular Hemoglobin Concent 34.1, Mean Platelet Volume 9.4, Neutrophils (%) (Auto) 63.8, Lymphocytes (%) (Auto) 27.1, Monocytes (%) (Auto) 5.8, Eosinophils (%) (Auto) 2.6, Basophils (%) (Auto) 0.5, Neutrophils # (Auto) 4.15, Lymphocytes # (Auto) 1.76, Monocytes # (Auto) 0.38, Eosinophils # (Auto) 0.17, Basophils # (Auto) 0.03 09/21/17 16:40 Test 09/21/17 16:40 09/21/17 18:10 White Blood Count 6.50 K/uL (4.8-10.8) Red Blood Count 4.49 M/uL (4.2-5.4) Hemoglobin 13.3 g/dL (12.0-16.0) Hematocrit 39.0 % (37-47) Mean Corpuscular Volume 86.9 fL (80-100) Mean Corpuscular Hemoglobin 29.6 pg (25-34) Mean Corpuscular Hemoglobin Concent 34.1 g/dl (32-36) Platelet Count 175 K/uL (130-400) Mean Platelet Volume 9.4 fL (7.4-10.4) Neutrophils (%) (Auto) 63.8 % Lymphocytes (%) (Auto) 27.1 % Monocytes (%) (Auto) 5.8 % Eosinophils (%) (Auto) 2.6 % Basophils (%) (Auto) 0.5 % Neutrophils # (Auto) 4.15 K/uL (1.4-6.5) Lymphocytes # (Auto) 1.76 K/uL (1.2-3.4) Monocytes # (Auto) 0.38 K/uL (0.11-0.59) Eosinophils # (Auto) 0.17 K/uL (0-0.5) Basophils # (Auto) 0.03 K/uL (0-0.2) RDW Standard Deviation 42.6 fL (36.4-46.3) RDW Coefficient of Variation 13.5 % (11.5-14.5) Immature Granulocyte % (Auto) 0.2 % Immature Granulocyte # (Auto) 0.01 K/uL (0.00-0.02) Anion Gap 7.0 mmol/L (3-11) Est Creatinine Clear Calc Drug Dose 55.7 ml/min Estimated GFR () 56.8 Estimated GFR (Non- 49.0 BUN/Creatinine Ratio 10.9 (10-20) Calcium Level 9.0 mg/dl (8.5-10.1) Total Bilirubin 0.6 mg/dl (0.2-1) Direct Bilirubin < 0.1 mg/dl (0-0.2) Aspartate Amino Transf (AST/SGOT) 25 U/L (15-37) Alanine Aminotransferase (ALT/SGPT) 30 U/L (12-78) Alkaline Phosphatase 112 U/L (45-117) Total Protein 8.2 gm/dl (6.4-8.2) Albumin 4.1 gm/dl (3.4-5.0) Lipase 177 U/L (73-393) Urine Color YELLOW Urine Appearance CLEAR (CLEAR) Urine pH 5.0 (4.5-7.5) Urine Specific [place] 1.018 (1.000-1.030) Urine Protein NEG (NEG) Urine Glucose (UA) NEG (NEG) Urine Ketones NEG (NEG) Urine Occult Blood NEG (NEG) Urine Nitrite POS (NEG) Urine Bilirubin NEG (NEG) Urine Urobilinogen NEG (NEG) Urine Leukocyte Esterase SMALL (NEG) Urine WBC (Auto) 10-30 /hpf (0-5) Urine RBC (Auto) 0-4 /hpf (0-4) Urine Hyaline Casts (Auto) 0 /lpf (0-5) Urine Epithelial Cells (Auto) 5-10 /lpf (0-5) Urine Bacteria (Auto) 4+ (NEG) Urine Test NEG (NEG) Laboratory results per my review. Medications Administered Medications (Trade) Dose Ordered Sig/Antonio Route Start Time Stop Time Status Last Admin Dose Admin Sodium Chloride 1,000 ml @ 999 mls/hr Q1H1M STAT IV 09/21/17 16:19 09/21/17 17:19 DC 09/21/17 16:19 999 MLS/HR Ondansetron HCl (Zofran Inj) 4 mg NOW STAT IV 09/21/17 16:19 09/21/17 16:21 DC 09/21/17 16:19 4 MG Morphine Sulfate (MoRPHine SULFATE INJ) 6 mg NOW STAT IV 09/21/17 16:19 09/21/17 16:21 DC 09/21/17 16:19 6 MG Cephalexin Monohydrate (Keflex Cap) 500 mg NOW ONCE PO 09/21/17 18:45 09/21/17 18:46 DC 09/21/17 18:43 500 MG ED Course ED COURSE: Vital signs were reviewed and showed hypertension. The patients medical record was reviewed The above diagnostic studies were performed and reviewed. ED treatments and interventions as stated above. 1609: The patient was evaluated in room C12B. A complete history and physical examination was performed. 1619: Ordered Morphine Sulfate 6 mg IV, Zofran 4 mg IV, and Sodium Chloride 1, 000 ml @ 999 mls/hr IV 1632: I reassessed the patient at this time. I performed a rectal exam. Please see rectal exam note. 1700: Ordered Ioversol 100 ml IV 1845: Ordered Keflex 500 mg PO 1922: Upon reevaluation, the patient is resting comfortably. I discussed my findings with the patient and she understands and agrees with the treatment plan. Based on the patients age, coexisting illnesses, exam and lab findings the decision to treat as an outpatient was made. The patient remained stable while under my care. The patient appeared well at the time of discharge. Medical Decision Differential diagnoses includes but is not limited to gastritis, peptic ulcer disease, GERD, gallbladder disease, pancreatitis, small bowel obstruction, acute coronary syndrome, pericarditis, ischemic bowel, irritable bowel disease, irritable bowel syndrome, appendicitis, diverticulitis, malignancy, hernia, urinary tract infection, torsion, [/ectopic (if female)], perforation, trauma, infectious. Patient is a 56 year old female who presents to ER for cramping diffuse abdominal pain associated with nausea which worsened last night. She has had this abdominal discomfort for the past several months. Previous cholecystectomy and appendectomy. Abdominal exam is completely benign. Cc on BMP, LFTs, bilirubin lipase is unremarkable. UA shows a clear UTI. was negative. She was given fluids, morphine and Keflex due to the UTI. Patient was updated bedside. Discharged follow-up with PCP with abdominal pain and UTI. Discussed with Pt concerning signs and symptoms to watch out for. Pt was instructed to follow up with their PCP and discussed with the patient their option to return to the ED at anytime for persistent or worsening symptoms. The appropriate anticipatory guidance and out-patient management, including indications for return to the emergency department, were explained at length to the patient and understood. Medication Reconcilliation Current Medication List: was personally reviewed by me Blood Pressure Screening Patient's blood pressure: Elevated blood pressure Blood pressure disposition: Elevated BP felt to be situational Impression Primary Impression: Lower abdominal pain Additional Impression: UTI (urinary tract infection) Scribe Attestation The scribe's documentation has been prepared under my direction and personally reviewed by me in its entirety. I confirm that the note above accurately reflects all work, treatment, procedures, and medical decision making performed by me. Departure Information Dispostion Home / Self-Care Prescriptions Cephalexin (KEFLEX) 500 Mg Cap 1 CAP PO TID for 10 Days, #30 CAP Prov: Olegario Villaseñor, DO 09/21/17 Referrals Isabelle Arredondo M.D. (PCP) Forms Call Back Authorization, HOME CARE DOCUMENTATION FORM, IMPORTANT VISIT INFORMATION Patient Instructions ED UTI Cystitis Female, My [facility] Additional Instructions Please follow up with your primary care doctor or if you are a student, [facility] with in the next 24 hours. Any worsening of your symptoms, please return to the ED immediately. This includes any fevers greater than 100.4, worsening pain, chest pain, shortness breath, persistent nausea, vomiting, unable to eat or drink, or any other concerning signs or symptoms from your standpoint. Please take Tylenol or Motrin as needed for pain. Please take antibiotics as prescribed. Problem Qualifiers Additional Impression: UTI (urinary tract infection) Urinary tract infection type: acute cystitis Hematuria presence: with hematuria Qualified Codes: N30.01 - Acute cystitis with hematuria
[2017-09-21 17:13] LABS: TOTAL PROTEIN 8.2 gm/dl (6.4-8.2)
[2017-09-21 17:14] LABS: ALKALINE PHOSPHATASE 112 U/L (45-117); AST/SGOT 25 U/L (15-37)
[2017-09-21] MEDS ORDERED: ULT50 PO (17:24)
[2017-09-21] MEDS ORDERED: CYCL10TA6 PO (17:32)
[2017-09-21] MEDS ORDERED: RANI300T PO (17:35)
--- NOTE | 2017-09-21 17:44 | DIAGNOSTIC IMAGING REPORT ---
ABD/PELVIS IV CONTRAST ONLY CT DOSE: 479.72 mGy.cm HISTORY: Pain diffuse abd pain worse in rlq TECHNIQUE: Multiaxial CT images of the abdomen and pelvis were performed following the use of intravenous contrast. A dose lowering technique was utilized adhering to the principles of ALARA. COMPARISON STUDY: 03/19/2017. 2. 2 2016. FINDINGS: Lung bases are clear. Liver is uniform in appearance with pancreas and spleen are unremarkable. Prior cholecystectomy. 2 mm nonobstructing upper pole right renal calcification unchanged. Prominence of the right renal pelvis generally stable compared to prior study. Slight prominence of the left renal pelvis slightly increased from the prior exam. No evidence for an obstructing urinary tract calculus. Nonobstructive bowel pattern. Prior appendectomy. Several scattered diverticuli with no evidence diverticulitis. Focal sigmoid anastomosis on an operative basis considered unremarkable and unchanged. No free fluid within the cul-de-sac. Stable postoperative changes low lumbar spine. Focal benign bone island left mid sacrum. IMPRESSION: Chronic and postoperative change. No acute process of the abdomen or pelvis. The above report was generated using voice recognition software. It may contain grammatical, syntax or spelling errors. Electronically signed by: Rony Casarez M.D. 09/21/2017 5:42 PM Dictated Date/Time: 09/21/2017 5:35 PM
[2017-09-21] MEDS ORDERED: CEPH-571 PO (18:41)
[2017-09-21] MEDS ORDERED: CEPHALEXIN MONOHYDRATE 250 MG CAP PO ONE (18:45)
[2017-09-21 19:30] VITALS: BP 132/70; PULSE 80; O2SAT 98
== END 2017-09-21 19:32 | disposition home or self-care (01) ==
LOC: C.EDB 16:03 → C.EDC 19:32
DX: R10.30 Lower abdominal pain, unspecified (principal); N30.01 Acute cystitis with hematuria; E78.5 Hyperlipidemia, unspecified; M79.7 Fibromyalgia; F17.200 Nicotine dependence, unspecified, uncomplicated; Z86.73 Personal history of transient ischemic attack (TIA), and cerebral infarction without residual deficits; Z98.51 Tubal ligation status; Z80.0 Family history of malignant neoplasm of digestive organs; Z79.899 Other long term (current) drug therapy

== ENCOUNTER → 2018-01-10 | Outpatient (CLI) | payer OTHER ==
[~2018-01-10] MED LIST changes: -ASPI81TA28 PO; +CYCL10TA6 PO; -DOXY100C2 PO; -MULT-506 PO; -PRED10TA PO; -PRT/20 PO; +RANI300T PO; +ULT50 PO
== END | disposition home or self-care (01) ==
LOC: C.LABMFLN 08:58
PROVIDERS: ATTEND Family Medicine
DX: Z11.59 Encounter for screening for other viral diseases (principal)

== ENCOUNTER → 2018-04-23 | Outpatient (CLI) | payer OTHER ==
[~2018-04-23] MED LIST changes: -[UNRECOGNIZED DRUG - CODE] PO
== END | disposition home or self-care (01) ==
LOC: C.LABMFLN 09:02
PROVIDERS: ATTEND Family Medicine
DX: E78.2 Mixed hyperlipidemia (principal)

== ENCOUNTER 2021-02-15 01:10 | Observation (INO) ==
[2021-02-15] MEDS ORDERED: NITROGLYCERIN SL 0.4 MG/TAB TAB SL STA (01:20)
[2021-02-15 01:26] LABS: Basophils # (auto) 0.02 K/uL (0-0.2); Basophils % (auto) 0.4 %; Eosinophils % (auto) 3.9 %; Hematocrit (blood only) 36.5 % (37-47); Hemoglobin 12.2 g/dL (12.0-16.0); Lymphocytes % (auto) 37.4 %; Mean Corpuscular Hemoglobin 28.2 pg (25-34); Mean Corpuscular Hgb Conc 33.4 g/dL (32-36); Mean Corpuscular Volume 84.3 fL (80-100); Mean Platelet Volume 8.9 fL (7.4-10.4); Monocytes # (auto) 0.37 K/uL (0.11-0.59); Monocytes % (auto) 7.3 %; Neutrophils # (auto) 2.59 K/uL (1.4-6.5); Platelet Count 163 K/uL (130-400); RDW Coefficient of Variation 13.4 % (11.5-14.5); RDW Standard Deviation 41.2 fL (36.4-46.3); Red Blood Count 4.33 M/uL (4.2-5.4); White Blood Count 5.08 K/uL (4.8-10.8)
--- NOTE | 2021-02-15 01:27 | Emergency Department Note ---
Impression & Plan Left-sided chest pain ED Provider Note Name: KURT GUEVARA Age: 60 Sex: F Arrives Via: Ambulance Informant: Patient ED Provider: Raghav Bond MD Chief Complaint: chest pain Impression: Left Sided Chest Pain Medical Decision Makin yr old severely anxious female with history of tia, hld, copd, gerd, ckd, amongst others and strong family history of CAD arrives for left chest pain ongoing last few hours which resolved with slntg. ASA 324 already given by EMS. She has normal work-up including ekg, cxr, trop. This is not consistent with PE nor dissection. She has no evidence intraabdominal issue at this time. It is apparent that she has chest pains regularly for quite some time but she is quite clear that this is different pain. With risk factors I felt that cardiac rule out indicated and thus hospitalist consulted for further management. Prior Medical Record and Triage/Nursing Notes reviewed by Me Additional history obtained from chart and cardiologists records Differentials:Cardiac ischemia, aortic dissection, pulmonary embolism, pneumothorax, pneumonia, pericarditis, myocarditis, esophageal rupture, GERD, cholecystitis, pancreatitis, musculoskeletal, as well as other pathologies. Vital Signs: reviewed and remarkable for no significant abnormalities Interventions: slntg x 1 Labs:Reviewed and remarkable for no significant abnormalities Imaging:X ray results are stated below per my interpretation: Chest: 1 view: No infiltrate, no effusion, normal cardiac border. EKG:Per My Interpretation: Indication Chest Pain: NSR 92 bpm, qtc [address] flattening anterior leads smilar to previous EKG. No Ectopy. No Ischemia. Compared to EKG 01/22/17, no significant changes. Cardiac/Tele Monitoring: Cardiac Monitoring: An Order was placed for continuous cardiac monitoring. The monitor shows a rate of 90 with a normal sinus rhythm. Consults:Dr Elisa SUTTON Hospitalist Plan: Disposition:Hospitalization. Referred to: PCP Condition: Good History of Present Illness:60 yr old female arrives for evaluation of chest pain. Onset relatively quickly left chest discomfort radiating to left shoulder. Started 8pm this evening. Worse with exertion, better with rest. Notes ASA 324mg PO & SLNTG x 2 by EMS with improvement. Mild pain currently. Associated with palpations. History of anxiety though notes this is not similar. Denies syncope, sob, nausea, vomiting, cough, fevers, nor other symptoms. No history of CAD. Notes parents with CAD. History of chest pains on and off for several years, usually sharp and just a few minutes that occurs several times a week. This is not similar to that pain. Was going to have dobutamine stress a few months ago but unable to schedule it. ROS: See above HPI for pertinent positives & negatives. A total of 10 systems reviewed and were otherwise negative. Past Medical History:GERD, Depression, Anxiety, Migraine, MS, Neuropathy, TIA x 3 Past Surgical History:Appendectomy, Lung resection, Cataract surgery, Bladder surgery, Hysterectomy Family History:Parents CAD Social History:, former smoker, no etoh, works as home health aide Home Medications:See Below Allergies:See Below Vitals:Blood Pressure: 150/84, Pulse 82, RR 18, T 37.0C, O2 98% on RA Physical Exam: GENERAL: Patient is anxious appearing and in minimal distress. EYES: No scleral icterus, unremarkable pupils. ENT: Mucous membranes moist, no nasal congestion. NECK: No masses appreciated, nomeningismus, trachea is midline. RESPIRATORY: No dyspnea. Clear to auscultation and equal bilaterally. No wheeze, no rhonchi. CARDIOVASCULAR: Regular rate and rhythm.No murmurs, rubs, gallops appreciated. GASTROINTESTINAL: Abdomen soft, non-tender, no peritonitis.Bowel sounds positive.No masses appreciated. BACK: No midline tenderness, no CVA tenderness EXTREMITIES: Normal motion all extremities, no cyanosis, no edema. NEUROLOGIC: Alert and oriented, no acute motor or sensory deficits, no focal weakness, cranial nerves grossly intact. SKIN: No rash, no jaundice, no diaphoresis. PSYCH: Appropriate GCS: 15 ED Course: Times/Reassessments: complete resolution of pain and improvement in BP with slntg. Agreeable to hospitalization Raghav Bond MD Past Med/Surg History Medical History (Updated 02/15/21 @ 04:19 by Raghav Bond MD) Acid reflux disease Asymptomatic proteinuria Cervicalgia Chronic constipation Chronic lower back pain COPD, mild Depression with anxiety Hyperlipidemia Lumbar disc disease Neuropathy, peripheral, idiopathic Osteoarthritis of left hip Osteoporosis Recurrent UTI Stage 3 chronic kidney disease Surgical History H/O colonoscopy History of back surgery History of salpingo-oophorectomy S/P appendectomy S/P carpal tunnel release S/P cholecystectomy S/P hysterectomy S/P tubal ligation Family History Father Heart disease Mother CHF (congestive heart failure) Diabetes Hypertension Social History Smoking Status: Never smoker Hx Alcohol Use: No Hx Substance Use: No Preferred Language: Armenian Visual Impairment: Limited Hearing Ability: Normal marital status: Current Living Situation: Spouse current occupational status: employed Feels Safe at Home: Yes Childhood Exposure to Second-Hand Smoke: No Dental Care, Regularly: Yes Physical Activity Frequency: Does not Exercise Seatbelt Use: always Sunscreen Use: Yes Allergies Allergies Allergy/AdvReac Type Severity Reaction Status Date / Time ciprofloxacin Allergy Unknown ITCHY, Verified 02/15/21 02:11 ampicillin Allergy Unknown Verified 02/15/21 02:11 cephalexin Allergy Unknown Verified 02/15/21 02:11 ketorolac [From Toradol] Allergy Unknown Verified 02/15/21 02:11 promethazine [From Phenergan] Allergy Unknown Verified 02/15/21 02:11 Penicillins AdvReac Unknown DISORIENTED Verified 02/15/21 02:11 Sulfa (Sulfonamide AdvReac Unknown DISORIENTED Verified 02/15/21 02:11 Antibiotics) Home Meds Home Medications Medication Instructions Recorded Confirmed cyclobenzaprine 10 mg PO TID PRN 02/15/21 02/15/21 Previous Rx's Medication Instructions Recorded atorvastatin 40 mg tablet 40 mg PO DAILY #90 tab 10/23/20 sertraline 100 mg tablet 100 mg PO HS #90 tab 10/23/20 aspirin 81 mg tablet,delayed 81 mg PO DAILY #90 tab 11/09/20 release omeprazole 20 mg capsule,delayed 20 mg PO DAILY #90 cap 11/12/20 release tramadol 50 mg tablet 50 mg PO QID PRN #120 tab 02/09/21 Results & Data (ED) Vital Signs Vital Signs - 24 hr 02/15/21 01:22 02/15/21 01:31 02/15/21 02:28 Temperature 37.0 C Temperature Source Oral Pulse Rate 92 H 84 74 Respiratory Rate 18 17 14 Respiratory Effort / Characteristics Non-Labored Spontaneous Respiratory Depth Normal Respiratory Pattern Regular Blood Pressure 150/84 H 122/65 114/71 Blood Pressure Mean 106 84 85 Blood Pressure Position Sitting Pulse Oximetry 98 95 96 Oxygen Delivery Method Room Air Room Air Sepsis Recent Fever Within 48 Hours No Sepsis New/Unexplained Change in Mental Status N/A Sepsis Action Taken by Nursing No Action Required 02/15/21 02:30 02/15/21 03:00 02/15/21 03:31 Temperature Temperature Source Pulse Rate 77 68 66 Respiratory Rate 12 15 15 Respiratory Effort / Characteristics Respiratory Depth Respiratory Pattern Blood Pressure 114/66 126/77 151/83 H Blood Pressure Mean 82 93 105 Blood Pressure Position Pulse Oximetry 94 98 100 Oxygen Delivery Method Room Air Room Air Sepsis Recent Fever Within 48 Hours Sepsis New/Unexplained Change in Mental Status Sepsis Action Taken by Nursing 02/15/21 04:00 Temperature Temperature Source Pulse Rate 75 Respiratory Rate 14 Respiratory Effort / Characteristics Respiratory Depth Respiratory Pattern Blood Pressure 128/76 Blood Pressure Mean 93 Blood Pressure Position Pulse Oximetry 96 Oxygen Delivery Method Room Air Sepsis Recent Fever Within 48 Hours Sepsis New/Unexplained Change in Mental Status Sepsis Action Taken by Nursing Laboratory Data Result diagrams: 02/15/21 01:17 02/15/21 01:17 Lab Results 02/15/21 02/15/21 02/15/21 Range/Units 01:17 01:17 01:34 WBC 5.08 (4.8-10.8) K/uL RBC 4.33 (4.2-5.4) M/uL Hgb 12.2 (12.0-16.0) g/dL Hct 36.5 L (37-47) % MCV 84.3 (80-100) fL MCH 28.2 (25-34) pg MCHC 33.4 (32-36) g/dL RDW Std Deviation 41.2 (36.4-46.3) fL RDW Coeff of Donny 13.4 (11.5-14.5) % Plt Count 163 (130-400) K/uL MPV 8.9 (7.4-10.4) fL Immature Gran % (Auto) 0.0 % Neut % (Auto) 51.0 % Lymph % (Auto) 37.4 % [place] % (Auto) 7.3 % Eos % (Auto) 3.9 % Baso % (Auto) 0.4 % Neut # (Auto) 2.59 (1.4-6.5) K/uL Lymph # (Auto) 1.90 (1.2-3.4) K/uL Jun[place] # (Auto) 0.37 (0.11-0.59) K/uL Eos # (Auto) 0.20 (0-0.5) K/uL Baso # (Auto) 0.02 (0-0.2) K/uL Immature Gran # (Auto) 0.00 (0.00-0.02) K/uL Sodium 142 (136-145) mmol/L Potassium 3.6 (3.5-5.1) mmol/L Chloride 107 (98-107) mmol/L Carbon Dioxide 28 (21-32) mmol/L Anion Gap 7.0 (3-11) BUN 13 (7-18) mg/dl Creatinine 1.22 H (0.6-1.2) mg/dl Est Cr Clr Drug Dosing Not Reportable Est GFR ( Amer) 55.8 ml/min Est GFR (Non-Af Amer) 48.1 ml/min BUN/Creatinine Ratio 10.6 (10-20) Glucose 111 H (70-99) mg/dl Calcium 8.8 (8.5-10.1) mg/dl Magnesium 2.3 (1.8-2.4) mg/dl Total Bilirubin 0.3 (0.2-1) mg/dl Direct Bilirubin < 0.1 (0-0.2) mg/dl AST 22 (15-37) U/L ALT 23 (12-78) U/L Alkaline Phosphatase 121 H (45-117) U/L Troponin I < 0.015 (0-0.045) ng/ml Total Protein 8.1 (6.4-8.2) gm/dl Albumin 3.5 (3.4-5.0) gm/dl Lipase 105 (73-393) U/L COVID-19 Eval Order Covid19 at [facility] SARS-CoV-2 (PCR) (Negative) 02/15/21 Range/Units 01:34 WBC (4.8-10.8) K/uL RBC (4.2-5.4) M/uL Hgb (12.0-16.0) g/dL Hct (37-47) % MCV (80-100) fL MCH (25-34) pg MCHC (32-36) g/dL RDW Std Deviation (36.4-46.3) fL RDW Coeff of Donny (11.5-14.5) % Plt Count (130-400) K/uL MPV (7.4-10.4) fL Immature Gran % (Auto) % Neut % (Auto) % Lymph % (Auto) % Jun[place] % (Auto) % Eos % (Auto) % Baso % (Auto) % Neut # (Auto) (1.4-6.5) K/uL Lymph # (Auto) (1.2-3.4) K/uL Jun[place] # (Auto) (0.11-0.59) K/uL Eos # (Auto) (0-0.5) K/uL Baso # (Auto) (0-0.2) K/uL Immature Gran # (Auto) (0.00-0.02) K/uL Sodium (136-145) mmol/L Potassium (3.5-5.1) mmol/L Chloride (98-107) mmol/L Carbon Dioxide (21-32) mmol/L Anion Gap (3-11) BUN (7-18) mg/dl Creatinine (0.6-1.2) mg/dl Est Cr Clr Drug Dosing Est GFR ( Amer) ml/min Est GFR (Non-Af Amer) ml/min BUN/Creatinine Ratio (10-20) Glucose (70-99) mg/dl Calcium (8.5-10.1) mg/dl Magnesium (1.8-2.4) mg/dl Total Bilirubin (0.2-1) mg/dl Direct Bilirubin (0-0.2) mg/dl AST (15-37) U/L ALT (12-78) U/L Alkaline Phosphatase (45-117) U/L Troponin I (0-0.045) ng/ml Total Protein (6.4-8.2) gm/dl Albumin (3.4-5.0) gm/dl Lipase (73-393) U/L COVID-19 Eval Order SARS-CoV-2 (PCR) NEGATIVE (Negative) Administered Medications Discontinued Medications Nitroglycerin (Nitroglycerin Sl 0.4 Mg/Tab Tab) 0.4 mg SL NOW STA Stop: 02/15/21 01:21 Last Admin: 02/15/21 01:33 Dose: 0.4 mg Documented by: [id number] Discharge Plan Visit Data Chief Complaint: Chest Pain Stated Complaint: CHEST PAIN ED Provider: Raghav Bond Discharge Problem: Left-sided chest pain Forms Stand Alone Forms: [facility] Prescriptions Prescriptions: No Action sertraline 100 mg tablet 100 mg PO HS Qty: 90 RF: 3 atorvastatin 40 mg tablet 40 mg PO DAILY Qty: 90 RF: 3 omeprazole 20 mg capsule,delayed release(DR/EC) 20 mg PO DAILY Qty: 90 RF: 3 tramadol 50 mg tablet 50 mg PO QID PRN (Reason: Pain) Qty: 120 RF: 0 aspirin 81 mg tablet,delayed release (DR/EC) 81 mg PO DAILY Qty: 90 RF: 3 cyclobenzaprine 10 mg tablet 10 mg PO TID PRN (Reason: Muscle Spasm) RF: 0
[2021-02-15 02:18] LABS: Alanine Aminotransferase 23 U/L (12-78); Albumin Level 3.5 gm/dl (3.4-5.0); Alkaline Phosphatase 121 U/L (45-117); BUN Creatinine Ratio 10.6 (10-20); Bilirubin,Total 0.3 mg/dl (0.2-1); Blood Urea Nitrogen 13 mg/dl (7-18); Calcium 8.8 mg/dl (8.5-10.1); Carbon Dioxide 28 mmol/L (21-32); Chloride 107 mmol/L (98-107); Est GFR (African American) 55.8 ml/min; Est GFR (Non-African American) 48.1 ml/min; Glucose 111 mg/dl (70-99); Lipase 105 U/L (73-393); Sodium 142 mmol/L (136-145); Total Protein 8.1 gm/dl (6.4-8.2); Troponin I < 0.015 ng/ml (0-0.045)
[2021-02-15 02:31] LABS: Potassium 3.6 mmol/L (3.5-5.1)
[2021-02-15 02:43] LABS: Aspartate Aminotransferase 22 U/L (15-37); Bilirubin Direct < 0.1 mg/dl (0-0.2); Magnesium 2.3 mg/dl (1.8-2.4)
--- NOTE | 2021-02-15 03:37 | History & Physical Report ---
Date of Service February 15, 2021 Assessment & Plan (1) Left-sided chest pain: Patient is a 60 year old female with PMHx HLD, TIA, GERD, CKD III, Townsend's Esophagus, Anxiety, Depression, that presents for both sharp and crushing chest pain that had been ongoing since 8PM on night of admission. Chest Pain -At this time feel that patient's chest pain may be more secondary to musculoskeletal causes, costochondritis, worsening GERD, or anxiety -Troponin drawn in ED negative at 5 hours post onset of pain (expect elevation, especially with ongoing pain, by at least 2-3 hours) -EKG without acute changes when compared to prior EKG's -Already on ASA at baseline for presumed TIA's, will continue -Continue Atorvastatin -Nitro SL PRN worsening pain -EKG in AM -Will order for Dobutamine stress echo for patient during this stay as her pain has been ongoing -- NO CAFFEINE CONTAINING PRODUCTS UNTIL AFTER -Consult Cardiology Dr. De La Vega GERD -Continue Omeprazole -Can consider increasing if cardiac as cause of pain is r/o entirely CKD III -Creatinine at baseline 1.22 Depression/Anxiety -Continue Sertraline -Discussed reduction of caffeinated beverages with patient Dispo: Med/Surg Telemetry for cardiac monitoring FEN: Regular diet, no caffeine containing products DVT: SCDs Code: Full History of Present Illness Chief Complaint: chest pain Primary Care Provider: Isabelle Arredondo MD Patient is a 60 year old female with PMHx HLD, TIA, GERD, CKD III, Townsend's Esophagus, Anxiety, Depression, that presents for both sharp and crushing chest pain that had been ongoing since 8PM on night of admission. Patient states that she has been having on and off chest pain for "a few years now" and was actually most recently seen in November of 2020 for a similar episode at [facility]. She had follow up with [facility] that were planning on doing a dobutamine stress test for the patient, however, she never had it scheduled. She notes that she was leaving for work when she first started noting the chest pain tonight (works at [employer] in [place]) and noticed a stabbing pain under her L armpit and a "tons of bricks" on her L chest wall. She states this typically lasts 5-15 minutes at a time and usually improves. She was able to go to work and around 11:30PM she noted the pain had not really resolved and she was starting to have leg weakness and cramping as well. She also felt diaphoretic at that time, different than all of the other chest pains she has experienced in the past. She notes that she does have shortness of breath on exertion, especially with the pain, however, the pain does not appear to worsen with activity given that she was able to move a 20-30lb box at work, while having pain, without an increase. She was brought in by EMS where she was given ASA and 2 sublingual nitro which has reduced her pain from a 5 to a 3/10. Currently she notes that she is still having the pain and that it worse to palpation of her L side and up towards her back. She denies any fever, chills, SOB at rest, nausea, vomiting. Of note, patient states that she "stays hydrated," however primarily only consumes 2 cups of coffee, Pepsi, and Iced tea for beverages, all caffeine containing. She notes that "drinking water makes me feel as though I'm drowning" and that other liquids do not provide the same sensation. 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 Denies alcohol or illicit drug use. Allergies Allergy/AdvReac Type Severity Reaction Status Date / Time ciprofloxacin Allergy Unknown ITCHY, Verified 02/15/21 02:11 ampicillin Allergy Unknown Verified 02/15/21 02:11 cephalexin Allergy Unknown Verified 02/15/21 02:11 ketorolac [From Toradol] Allergy Unknown Verified 02/15/21 02:11 promethazine [From Phenergan] Allergy Unknown Verified 02/15/21 02:11 Penicillins AdvReac Unknown DISORIENTED Verified 02/15/21 02:11 Sulfa (Sulfonamide AdvReac Unknown DISORIENTED Verified 02/15/21 02:11 Antibiotics) Home Medications Medication Instructions Recorded Confirmed Type atorvastatin 40 mg tablet 40 mg PO DAILY #90 tab 10/23/20 02/15/21 Rx sertraline 100 mg tablet 100 mg PO HS #90 tab 10/23/20 02/15/21 Rx aspirin 81 mg tablet,delayed 81 mg PO DAILY #90 tab 11/09/20 02/15/21 Rx release omeprazole 20 mg capsule,delayed 20 mg PO DAILY #90 cap 11/12/20 02/15/21 Rx release tramadol 50 mg tablet 50 mg PO QID PRN #120 tab 02/09/21 02/15/21 Rx cyclobenzaprine 10 mg PO TID PRN 02/15/21 02/15/21 History Past Med/Surg History Medical History (Updated 02/15/21 @ 11:07 by Miguelito De Souza DO) Acid reflux disease Asymptomatic proteinuria Cervicalgia Chronic constipation Chronic lower back pain COPD, mild Depression with anxiety Hyperlipidemia Lumbar disc disease Neuropathy, peripheral, idiopathic Osteoarthritis of left hip Osteoporosis Recurrent UTI Stage 3 chronic kidney disease Surgical History H/O colonoscopy History of back surgery History of salpingo-oophorectomy S/P appendectomy S/P carpal tunnel release S/P cholecystectomy S/P hysterectomy S/P tubal ligation Family History Father Heart disease Mother CHF (congestive heart failure) Diabetes Hypertension Social History Smoking Status: Never smoker Hx Alcohol Use: No Hx Substance Use: No Preferred Language: French Communication Ability: Effective Visual Impairment: Limited Hearing Ability: Normal Extension Clerk Required: No Beliefs That Will Affect Care: None marital status: Current Living Situation: Spouse current occupational status: employed Other Information That Helps Us Care for You: No Feels Safe at Home: Yes Safety Concerns: Feels Safe At This Time Childhood Exposure to Second-Hand Smoke: No Dental Care, Regularly: Yes Physical Activity Frequency: Does not Exercise Seatbelt Use: always Sunscreen Use: Yes Assistive Devices: None Review of Systems Review of Systems: All systems reviewed & are unremarkable except as noted in Subjective Physical Exam Constitutional: well developed and well nourished; no acute distress Eyes: PERRL, conjunctivae normal, anicteric sclerae ENMT: external ear and nose normal, oropharynx normal Neck: trachea midline, no thyromegaly Respiratory: normal respiratory effort, lungs clear to auscultation Cardiovascular: RRR, no murmur, no edema Chest (Breasts): Additional Comments: Tenderness to palpation of the Costochondral junction on the L Tenderness to palpation of the L Axilla towards the scapula Gastrointestinal (Abdomen): Inspection/Auscultation: abdomen normal to inspection and normal bowel sounds Percussion/Palpation: + abdomen tender (ep igastric tenderness ) and abdomen soft; no guarding and abdomen not rigid Musculoskeletal: no cyanosis or clubbing, extremities motor strength 5/5 Skin: no rashes, warm and dry Results & Data Results & Data ([facility]) Vital Signs (Past 12 Hours) Vital Signs Temp Pulse Resp BP Pulse Ox 02/15/21 03:00 68 15 126/77 98 02/15/21 02:30 77 12 114/66 94 02/15/21 02:28 74 14 114/71 96 02/15/21 01:31 84 17 122/65 95 02/15/21 01:22 37.0 C 92 H 18 150/84 H 98 Supervising Physician Co-Signing Physician Notes Attending addendum: I have physically seen this patient, have supervised the medical residents activities, and agree with the H&P unless as otherwise noted. Assessment and Plan: Chest pain- The patient will be admitted to telemetry for serial cardiac enzymes, serial EKG's, cardiac rhythm monitoring and a 2-D echocardiogram with Dopplers. Continue baseline aspirin Consult cardiology Hyperlipidemia- Continue atorvastatin Check a fasting lipid panel and hemoglobin A1c GERD- Continue omeprazole/pantoprazole If cardiac work-up is negative, may need to further address GI status Depression/anxiety- Continue sertraline Remaining orders and notations as noted Resident Activity Tracking Resident Involvement: Resident Care Provided Care Provided: [facility]
[2021-02-15] MEDS ORDERED: NITROGLYCERIN SL 0.4 MG/TAB TAB SL PRN (06:13)
[2021-02-15 07:44] LABS: Basophils # (auto) 0.02 K/uL (0-0.2); Basophils % (auto) 0.5 %; Eosinophils # (auto) 0.15 K/uL (0-0.5); Eosinophils % (auto) 3.6 %; Hematocrit (blood only) 36.2 % (37-47); Hemoglobin 12.1 g/dL (12.0-16.0); Immature Granulocytes # (auto) 0.01 K/uL (0.00-0.02); Immature Granulocytes % (auto) 0.2 %; Lymphocytes # (auto) 1.49 K/uL (1.2-3.4); Lymphocytes % (auto) 36.2 %; Mean Corpuscular Hgb Conc 33.4 g/dL (32-36); Mean Corpuscular Volume 83.8 fL (80-100); Mean Platelet Volume 9.3 fL (7.4-10.4); Monocytes % (auto) 7.3 %; Neutrophils # (auto) 2.15 K/uL (1.4-6.5); Neutrophils % (auto) 52.2 %; Platelet Count 158 K/uL (130-400); RDW Coefficient of Variation 13.3 % (11.5-14.5); RDW Standard Deviation 40.5 fL (36.4-46.3); Red Blood Count 4.32 M/uL (4.2-5.4); White Blood Count 4.12 K/uL (4.8-10.8)
[2021-02-15 08:13] LABS: BUN Creatinine Ratio 11.1 (10-20); Blood Urea Nitrogen 12 mg/dl (7-18); Carbon Dioxide 27 mmol/L (21-32); Chloride 108 mmol/L (98-107); Creatinine Clr Calc Pharmacy 61.6 ml/min; Est GFR (African American) 65.3 ml/min; Est GFR (Non-African American) 56.4 ml/min; Glucose 104 mg/dl (70-99); Potassium 3.6 mmol/L (3.5-5.1); Sodium 142 mmol/L (136-145)
[2021-02-15] MEDS ORDERED: PANTOprazole 40 MG TAB PO SCH (09:00)
[2021-02-15] MEDS ORDERED: ASPIRIN 81 MG ECTAB PO SCH (09:00)
[2021-02-15] MEDS ORDERED: ATORVASTATIN 40 MG TAB PO SCH (09:00)
--- NOTE | 2021-02-15 09:26 | Cardiology Consultation ---
Date of Consultation February 15, 2021 Assessment & Plan (1) Left-sided chest pain: (2) Depression with anxiety: (3) Somatic dysfunction of chest wall: No signs of ischemia. Reproducible chest pain with direct palpation of the left 10th rib midclavicular line. No ischemia on dobutamine stress testing. No further cardiac testing or intervention necessary at this time. Outpatient stress testing should not be rescheduled. No cardiac follow-up necessary, will cancel March follow-up with Dr. Sales. Bill to [place] from a cardiac standpoint. History of Present Illness Reason for Consultation: chest pain Requesting Physician: Dr. Espinosa Attending Physician: Presley Espinosa MD History of Present Illness Ms. Newsome is a 60-year-old woman who presented to [facility] on 02/15/2021 with complaints of chest pain times several years. She describes it as a sharp stabbing sensation underneath her left breast that radiates to her substernal area and mid spine. She states it is worse with deep inhalation and movement. She has been seen by [facility] and stress testing was recommended to rule out ischemia as a possible cause of her atypical chest discomfort. However patient canceled study that was scheduled for January 17, 2021. Allergies Allergy/AdvReac Type Severity Reaction Status Date / Time ciprofloxacin Allergy Unknown ITCHY, Verified 02/15/21 02:11 ampicillin Allergy Unknown Verified 02/15/21 02:11 cephalexin Allergy Unknown Verified 02/15/21 02:11 ketorolac [From Toradol] Allergy Unknown Verified 02/15/21 02:11 promethazine [From Phenergan] Allergy Unknown Verified 02/15/21 02:11 Penicillins AdvReac Unknown DISORIENTED Verified 02/15/21 02:11 Sulfa (Sulfonamide AdvReac Unknown DISORIENTED Verified 02/15/21 02:11 Antibiotics) Home Medications Medication Instructions Recorded Confirmed Type atorvastatin 40 mg tablet 40 mg PO DAILY #90 tab 10/23/20 02/15/21 Rx sertraline 100 mg tablet 100 mg PO HS #90 tab 10/23/20 02/15/21 Rx aspirin 81 mg tablet,delayed 81 mg PO DAILY #90 tab 11/09/20 02/15/21 Rx release omeprazole 20 mg capsule,delayed 20 mg PO DAILY #90 cap 11/12/20 02/15/21 Rx release tramadol 50 mg tablet 50 mg PO QID PRN #120 tab 02/09/21 02/15/21 Rx cyclobenzaprine 10 mg PO TID PRN 02/15/21 02/15/21 History Patient History Medical History (Updated 02/15/21 @ 11:07 by Miguelito De Souza DO) Acid reflux disease Asymptomatic proteinuria Cervicalgia Chronic constipation Chronic lower back pain COPD, mild Depression with anxiety Hyperlipidemia Lumbar disc disease Neuropathy, peripheral, idiopathic Osteoarthritis of left hip Osteoporosis Recurrent UTI Stage 3 chronic kidney disease Surgical History H/O colonoscopy History of back surgery History of salpingo-oophorectomy S/P appendectomy S/P carpal tunnel release S/P cholecystectomy S/P hysterectomy S/P tubal ligation Family History Father Heart disease Mother CHF (congestive heart failure) Diabetes Hypertension Social History Smoking Status: Never smoker Hx Alcohol Use: No Hx Substance Use: No Preferred Language: Citizen Of [place] Communication Ability: Effective Visual Impairment: Limited Hearing Ability: Normal Medication Reconciliation Technician Required: No Beliefs That Will Affect Care: None marital status: Current Living Situation: Spouse current occupational status: employed Other Information That Helps Us Care for You: No Feels Safe at Home: Yes Safety Concerns: Feels Safe At This Time Childhood Exposure to Second-Hand Smoke: No Dental Care, Regularly: Yes Physical Activity Frequency: Does not Exercise Seatbelt Use: always Sunscreen Use: Yes Assistive Devices: None Review of Systems Review of Systems: All systems reviewed & are unremarkable except as noted in HPI & below Physical Exam Physical Exam: Physical Exam: General: Awake, alert and oriented x 3. No acute distress. HEENT: Normocephalic, atraumatic. Pupils equal, round and reactive to light and accommodation. Extraocular muscles are intact. Anicteric sclera. Moist mucous membranes. Neck: No JVD. No bruit. Cardiovascular: Regular. No S-4. Normal S-1 and S-2. No S-3. No murmurs, rubs or gallops. Pulmonary: Clear to auscultation bilaterally. No rales, rhonchi, or wheezing. Abdomen: Bowel sounds x 4, soft. No rebound, guarding or tenderness. No organomegaly. Extremities: No clubbing, cyanosis or edema. +2 pedal pulses bilaterally. Skin: Warm and dry. Musculoskeletal: Direct palpation of the left 10th rib midclavicular line was able to reproduce the patient's chest discomfort. Results & Data ([facility]) Vital Signs (Past 12 Hours) Vital Signs Temp Pulse Pulse Resp BP BP Pulse Ox 02/15/21 07:28 36.6 C 70 17 127/80 92 02/15/21 06:14 36.6 C 103 H 18 151/79 H 100 02/15/21 05:30 73 16 109/78 95 02/15/21 05:00 79 16 116/66 94 02/15/21 04:30 76 12 119/83 94 02/15/21 04:00 75 14 128/76 96 02/15/21 03:31 66 15 151/83 H 100 02/15/21 03:00 68 15 126/77 98 02/15/21 02:30 77 12 114/66 94 02/15/21 02:28 74 14 114/71 96 02/15/21 01:31 84 17 122/65 95 02/15/21 01:22 37.0 C 92 H 18 150/84 H 98
[2021-02-15 09:29] LABS: Troponin I < 0.015 ng/ml (0-0.045)
--- NOTE | 2021-02-15 10:00 | XRay Report ---
XR chest 1V portable CLINICAL HISTORY: Chest Pain COMPARISON STUDY: September 23, 2017 FINDINGS: No pneumothorax. No pleural effusion. Small focal reticular opacity is seen at the left base which could represent nipple shadow or intrapu lmonary lesion. The rest of lung parenchyma is clear. Cardiomediastinal silhouette is within normal limits in size. No significant pulmonary vascular congestion.. Aorta is calcified. Osseous structures: unremarkable IMPRESSION: 1. Questionable small reticular opacity at the left base might represent nipple shadow or intrapulmo nary lesion. Short-term follow-up in 4-6 weeks with PA and lateral chest radiograph with nipple marke rs is recommended. ACT 112: Negative or not required by law. The above report was generated using voice recognition software. It may contain grammatical, syntax o r spelling errors. Electronically signed by: Velia Ryder DO 02/15/2021 9:59 AM
[2021-02-15] MEDS ORDERED: ATROPINE SULFATE 0.1 MG/ML 10ML SYR IV ONE (10:07)
[2021-02-15] MEDS ORDERED: DOBUTamine HCL 12.5 MG/ML 20 ML VIAL IV ONE (10:07)
[2021-02-15] MEDS ORDERED: METOPROLOL TARTRATE 1 MG/ML VIAL IV ONE (10:07)
[2021-02-15 12:20] LABS: D Dimer 370 ug/L FEU (0-500)
--- NOTE | 2021-02-15 13:24 | Electrocardiogram Report ---
Test Reason : Blood Pressure : / mmHG Vent. Rate : 092 BPM Atrial Rate : 092 BPM P-R Int : 142 ms QRS Dur : 082 ms QT Int : 368 ms P-R-T Axes : 028 -03 017 degrees QTc Int : 455 ms Normal sinus rhythm Poor R wave progression, consider anterior PR vs. lead placement vs. LVH Nonspecific ST and T wave abnormality Abnormal ECG When compared with ECG of 22-JAN-2017 16:14, No significant change was found Confirmed by Remigio Kay ([id number]) on 02/15/2021 1:23:45 PM Referred By: REFERRED SELF Confirmed By:Remigio Kay
--- NOTE | 2021-02-15 13:52 | Electrocardiogram Report ---
Test Reason : Blood Pressure : / mmHG Vent. Rate : 072 BPM Atrial Rate : 072 BPM P-R Int : 160 ms QRS Dur : 092 ms QT Int : 428 ms P-R-T Axes : 023 011 031 degrees QTc Int : 468 ms Normal sinus rhythm T wave abnormality, consider anterior ischemia Prolonged QT Abnormal ECG When compared with ECG of 15-FEB-2021 01:14, (unconfirmed) Minimal criteria for Anterior infarct are no longer Present Confirmed by Remigio Kay ([id number]) on 02/15/2021 1:52:28 PM Referred By: REFERRED SELF Confirmed By:Remigio Kay
[2021-02-15 14:20] LABS: Iron 61 mcg/dl (35-150); Transferrin 202 mg/dl (200-360); Transferrin Percent Saturation 21 % (15-50)
--- NOTE | 2021-02-15 15:15 | Discharge Summary ---
Date of Service February 15, 2021 Admission HPI Per Admitting Provider Patient is a 60 year old female with PMHx HLD, TIA, GERD, CKD III, Townsend's Esophagus, Anxiety, Depression, that presents for both sharp and crushing chest pain that had been ongoing since 8PM on night of admission. Patient states that she has been having on and off chest pain for "a few years now" and was actually most recently seen in November of 2020 for a similar episode at [facility]. She had follow up with [facility] that were planning on doing a dobutamine stress test for the patient, however, she never had it scheduled. She notes that she was leaving for work when she first started noting the chest pain tonight (works at [employer] in [place]) and noticed a stabbing pain under her L armpit and a "tons of bricks" on her L chest wall. She states this typically lasts 5-15 minutes at a time and usually improves. She was able to go to work and around 11:30PM she noted the pain had not really resolved and she was starting to have leg weakness and cramping as well. She also felt diaphoretic at that time, different than all of the other chest pains she has experienced in the past. She notes that she does have shortness of breath on exertion, especially with the pain, however, the pain does not appear to worsen with activity given that she was able to move a 20-30lb box at work, while having pain, without an increase. She was brought in by EMS where she was given ASA and 2 sublingual nitro which has reduced her pain from a 5 to a 3/10. Currently she notes that she is still having the pain and that it worse to palpation of her L side and up towards her back. She denies any fever, chills, SOB at rest, nausea, vomiting. Of note, patient states that she "stays hydrated," however primarily only consumes 2 cups of coffee, Pepsi, and Iced tea for beverages, all caffeine containing. She notes that "drinking water makes me feel as though I'm drowning" and that other liquids do not provide the same sensation. 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 Denies alcohol or illicit drug use. Admission Exam Per Admitting Provider Constitutional: well developed and well nourished; no acute distress Eyes: PERRL, conjunctivae normal, anicteric sclerae ENMT: external ear and nose normal, oropharynx normal Neck: trachea midline, no thyromegaly Respiratory: normal respiratory effort, lungs clear to auscultation Cardiovascular: RRR, no murmur, no edema Chest (Breasts): Additional Comments: Tenderness to palpation of the Costochondral junction on the L Tenderness to palpation of the L Axilla towards the scapula Gastrointestinal (Abdomen): Inspection/Auscultation: abdomen normal to inspection and normal bowel sounds Percussion/Palpation: + abdomen tender (epigastric tenderness ) and abdomen soft; no guarding and abdomen not rigid Musculoskeletal: no cyanosis or clubbing, extremities motor strength 5/5 Skin: no rashes, warm and dry Principal Diagnosis Musculoskeletal chest pain Discharge Exam Constitutional WD/WN, vitals as above Eyes + anicteric sclerae; normal pupil size Respiratory normal respiratory effort, lungs clear to auscultation Cardiovascular RRR, no murmur, no edema Chest (Breasts) Chest: normal inspection of chest (pain to palpation) Gastrointestinal (Abdomen) normal bowel sounds, soft, nontender, no hepatosplenomegaly Discharge Data Allergies Allergy/AdvReac Type Severity Reaction Status Date / Time ciprofloxacin Allergy Unknown ITCHY, Verified 02/15/21 02:11 ampicillin Allergy Unknown Verified 02/15/21 02:11 cephalexin Allergy Unknown Verified 02/15/21 02:11 ketorolac [From Toradol] Allergy Unknown Verified 02/15/21 02:11 promethazine [From Phenergan] Allergy Unknown Verified 02/15/21 02:11 Penicillins AdvReac Unknown DISORIENTED Verified 02/15/21 02:11 Sulfa (Sulfonamide AdvReac Unknown DISORIENTED Verified 02/15/21 02:11 Antibiotics) Consultations 02/15/21 02:41 ED Decision to Admit Stat 02/15/21 06:13 Consult Cardiology Routine Hospital Course (1) Somatic dysfunction of chest wall: Fanta Newsome is a 60 year old female observed overnight at [facility] on February 15, 2021 due to chest pain. Serial troponins negative. No ischemia on dobutamine stress testing. No further cardiac testing or intervention necessary per cardiology consultation. D-dimer negative. Iron studies normal - as work-up for muscle spasms. Her pain is most consistent with musculoskeletal spasms and would consider outpatient physical therapy versus chiropractor to help with this. Total Time Total Time Spent Total Time Spent (In Minutes): 35 Total Time Includes: Examination of the Patient, Discharge Planning, Medication Reconciliation and Communication With Other Providers Discharge Plan Discharge Items Patient Disposition: Home - Self-Care Reason For Visit: CHEST PAIN Discharge Diagnosis: Musculoskeletal chest pain Activity: Resume your previous activity Non-emergency contact: Primary Care Provider Call non-emergency contact if: you have any medication questions and your symptoms worsen Follow-up/Referrals: Isabelle Arredondo MD [Primary Care Provider] - 03/03/21 8:45 am Diet: Regular Addtl Attending Provider Instructions: You are observed at [facility] on February 15, 2021 due to chest pain. Serial troponins negative. No ischemia on dobutamine stress testing. No further cardiac testing or intervention necessary per cardiology consultation. D-dimer negative. Iron studies normal - as work-up for muscle spasms. Your deven n is most consistent with musculoskeletal spasms and would consider outpatient physical therapy versus chiropractor to help with this. Pending Studies at Discharge: No Stand-Alone Forms: My [facility], Work/School Release Medications and DC Order Prescriptions: Continued sertraline 100 mg tablet 100 mg PO HS Qty: 90 RF: 3 atorvastatin 40 mg tablet 40 mg PO DAILY Qty: 90 RF: 3 omeprazole 20 mg capsule,delayed release(DR/EC) 20 mg PO DAILY Qty: 90 RF: 3 tramadol 50 mg tablet 50 mg PO QID PRN (Reason: Pain) Qty: 120 RF: 0 aspirin 81 mg tablet,delayed release (DR/EC) 81 mg PO DAILY Qty: 90 RF: 3 cyclobenzaprine 10 mg tablet 10 mg PO TID PRN (Reason: Muscle Spasm) RF: 0 Discharge Orders: Discharge Order (Routine); Ordered 02/15/21 Ordered By: Presley Espinosa Admission Data Admit Date/Time: 02/15/21 04:14 Attending Provider: Presley Espinosa Admit Provider: Israel Larsen Primary Care Provider: Isabelle Arredondo Other Providers: Kali Pérez ; Cedric De La Vega ; Miguelito De Souza Other Interventions: Discharge Summary Assessment (RN) Last Done: 02/15/21 15:17 Coding Level of Care Code Admit/DC Same Day >8hr Level 2 Diagnoses Somatic dysfunction of chest wall M99.08
[2021-02-15] MEDS ORDERED: SERTRALINE HCL 100 MG TABLET PO SCH (21:00)
--- NOTE | 2021-02-17 01:02 | Billing Data ---
Date of Service February 17, 2021 Coding Level of Care Code 59971 OBS Care - Level 3
== END 2021-02-15 18:15 | disposition home or self-care (01) ==
LOC: 2W 01:10 → ED 01:10 → SUATTDRO 04:14 → 2W 05:51
DX: Z79.899 Other long term (current) drug therapy; M99.02 Segmental and somatic dysfunction of thoracic region; Z79.82 Long term (current) use of aspirin; R07.9 Chest pain, unspecified; Z87.891 Personal history of nicotine dependence; Z88.8 Allergy status to other drugs, medicaments and biological substances; Z79.891 Long term (current) use of opiate analgesic; Z88.0 Allergy status to penicillin; Z88.1 Allergy status to other antibiotic agents; N18.30 Chronic kidney disease, stage 3 unspecified; Z88.2 Allergy status to sulfonamides; J44.9 Chronic obstructive pulmonary disease, unspecified; Z86.73 Personal history of transient ischemic attack (TIA), and cerebral infarction without residual deficits; E78.5 Hyperlipidemia, unspecified; K21.9 Gastro-esophageal reflux disease without esophagitis